=== PATIENT | male | born 1955 | race African-American/Black ===

== ENCOUNTER 2019-04-24 17:57 | Inpatient (IN) | payer OTHER ==
--- NOTE | 2019-04-24 18:19 | PDOC ---
History of Present Illness - General Chief Complaint: Pain, Acute Stated Complaint: ABD PAIN Time Seen by Provider: 04/24/19 17:58 History Source: Patient Exam Limitations: No Limitations - History of Present Illness Initial Comments: 04/24/19 18:09 64yo M with no significant PMH presenting to ED with complaints of abdominal pain, constipation and nausea. Pt states the pain started yesterday but has not had a bowel movement for 2d. The pain was 10/10 yesterday but it is 8/10 today, constant, feels sharp, does not radiate. He has not taken medication for the pain or the constipation. He says he is still passing gas. He endorses bloating. Denies vomiting, recent changes in bowel habits, abdominal surgeries, medication use, fevers, chills, urinary symptoms. No family history of colon cancer in the family. PMD: none PMH: none PSH: none Allergies: nkda Social: denies. Past History - Past Medical History Allergies/Adverse Reactions: Allergies Allergy/AdvReac Type Severity Reaction Status Date / Time No Known Allergies Allergy Verified 04/24/19 17:58 COPD: No - Suicide/Smoking/Psychosocial Hx Smoking History: Never smoked Hx Alcohol Use: No Drug/Substance Use Hx: No Review of Systems - Review of Systems Constitutional: No: Chills, Fever, Weakness HEENTM: No: Symptoms Reported Respiratory: No: Shortness of Breath Cardiac (ROS): No: Chest Pain, Lightheadedness, Palpitations, Syncope ABD/GI: Yes: See HPI, Constipated, Nausea, Abdominal cramping. No: Diarrhea, Poor Fluid Intake, Rectal Bleeding, Vomiting, Tarry Stools : No: Symptoms Reported Musculoskeletal: No: Symptoms Reported Integumentary: No: Symptoms Reported Neurological: No: Symptoms reported *Physical Exam - Vital Signs Last Vital Signs Temp Pulse Resp BP Pulse Ox 0/0 L 04/24/19 17:57 - Physical Exam General Appearance: Yes: Appropriately Dressed, Obese. No: Apparent Distress HEENT: positive: EOMI, MACHELLE Neck: positive: Trachea midline, Supple Respiratory/Chest: positive: Lungs Clear, Normal Breath Sounds Cardiovascular: positive: Regular Rhythm, Regular Rate, S1, S2. negative: Edema , JVD, Murmur Vascular Pulses: Dorsalis-Pedis (R): 2+, Doralis-Pedis (L): 2+ Gastrointestinal/Abdominal: positive: Normal Bowel Sounds, Distended, Tenderness (diffuse), Hernia (non tender reducible umbilical hernia without skin changes). negative: Pulsatile Mass, Increased Bowel Sounds, Guarding, Rebound, Mass Rectal Exam: positive: normal exam, normal rectal tone, other (no stool in vault ). negative: melena, hemorrhoids Musculoskeletal: negative: CVA Tenderness Extremity: positive: Normal Capillary Refill. negative: Pedal Edema, Swelling Integumentary: positive: Normal Color, Dry, Warm Neurologic: positive: dispatcher electric power II-XII NML intact, Fully Oriented, Alert, Normal Mood/ Affect, Normal Response, Motor Strength 01/20 ED Treatment Course - LABORATORY CBC & Chemistry Diagram: 04/24/19 18:41 04/24/19 18:41 Medical Decision Making - Medical Decision Making 04/24/19 18:22 64yo M with no significant PMH presenting to ED with complaints of abdominal pain, constipation and nausea. Pt states the pain started yesterday but has not had a bowel movement for 2d. The pain was 10/10 yesterday but it is 8/10 today, constant, feels sharp, does not radiate. He has not taken medication for the pain or the constipation. He says he is still passing gas. He endorses bloating. Denies vomiting, recent changes in bowel habits, abdominal surgeries, medication use, fevers, chills, urinary symptoms. No family history of colon cancer in the family. Vitals: wnl PE: distended abdomen without fluid wave, diffuse abdominal tenderness. No rebound or guarding. reducible umbilical hernia. Normal rectal exam, no fecal impaction palpated. Normal bowel sounds. Pt could be constipated, will likely need CT scan to check for obstruction (mass /malignancy), electrolyte abnormality, ileus. Low suspicion for SBO or volvulus. Will obtain basic labs as well as UA, give IV fluids, zofran and Tylenol for pain. Signed out to night team for further management and dispo *DC/Admit/Observation/Transfer Diagnosis at time of Disposition: Abdominal pain Qualifiers: Abdominal location: generalized Qualified Code(s): R10.84 - Generalized abdominal pain Constipation Qualifiers: Constipation type: unspecified constipation type Qualified Code(s): K59.00 - Constipation, unspecified - Discharge Dispostion Condition at time of disposition: Stable - Referrals - Patient Instructions - Post Discharge Activity
[2019-04-24] MEDS ORDERED: SODIUM CHLORIDE 1,000 ML IV STA (18:20)
[2019-04-24] MEDS ORDERED: ACETAMINOPHEN 1000 MG/100 ML VIAL (NON FORMULARY) IVPB ONE (18:20)
[2019-04-24] MEDS ORDERED: ONDANSETRON 4 MG/2 ML VIAL IVPB ONE (18:20)
--- NOTE | 2019-04-24 18:32 | PDOC ---
Documentation entered by Yessica Man SCRIBE, acting as scribe for William Mejia MD. William Mejia MD: This documentation has been prepared by the maileibeDonovan Lincy, SCRIBE, under my direction and personally reviewed by me in its entirety. I confirm that the documentation accurately reflects all work, treatment, procedures, and medical decision making performed by me. Attending Attestation - Resident Resident Name: Karen Hong - ED Attending Attestation I have performed the following: I have examined & evaluated the patient, The case was reviewed & discussed with the resident, I agree w/resident's findings & plan, Exceptions are as noted - HPI HPI: 04/24/19 18:26 The patient is a 64-year-old male with no significant past medical history presents to the emergency department with abdominal pain, constipation, bloating , and nausea. The patient presents with 2 days of constipation, associated with a 1-day history of sharp, nonradiating, 10/10 abdominal pain, and bloating. The patient reports the pain has decreased in severity to 8/10 today, associated with nausea, denies vomiting, hematochezia, or melena. The patient states he was able to tolerate PO today and pass gas. Denies recent travel. Denies urinary complaints. Allergies: NKDA Surgical history: Denies prior abdominal surgery. 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 - Physicial Exam PE: 04/24/19 18:30 Alert, cheerful and cooperative, no acute distress Afebrile, vital signs normal Abdomen mildly distended. Bowel sounds infrequent but normal in character. Mild diffuse tenderness to deep palpation in all 4 quadrants, without real localization. No guarding or rebound. Rectal exam, done by the resident, reportedly negative. There was no impaction. There were no masses or tenderness. There was no stool to be obtained in the ampulla. - Medical Decision Making 04/24/19 18:16 Assessment: Patient with new onset abdominal pain and constipation, distended abdomen but no significant tenderness, nausea but no vomiting, passing gas, tolerating small amounts of food and fluid, rule out partial small bowel obstruction Plan: Basic labs, IV fluids, and CT. Further medical evaluation treatment depending on the initial results 05/01/19 08:44 Patient was signed out to Dr. Morrow pending further evaluation, results of labs and CT scan. Patient is relatively comfortable, in no distress, clinically and hemodynamically stable.
[2019-04-24] MEDS ORDERED: ACETAMINOPHEN INJECTION 100 ML IVPB ONE (18:41)
[2019-04-24] MEDS ORDERED: ONDANSETRON 4 MG/2 ML VIAL ONE (18:41)
[2019-04-24 18:53] LABS: BASO % 0.8 % (0-2.0); HEMATOCRIT 44.5 % (35.4-49); HEMOGLOBIN 14.4 GM/dl (11.7-16.9); LYMPH % 35.1 % (8-40); MCH 27.9 pg (25.7-33.7); MCHC 32.4 g/dl (32.0-35.9); MEAN PLT VOLUME 8.6 fl (7.5-11.1); MONO % 11.6 % (3.8-10.2); NEUT % 50.5 % (42.8-82.8); PLATELET COUNT 246 K/MM3 (134-434); RBC 5.17 M/mm3 (4.00-5.60); RDW 13.9 % (11.9-15.9); WHITE BLOOD COUNT 4.5 K/mm3 (4.0-10.8)
[2019-04-24 19:03] LABS: ALBUMIN 4.2 g/dl (3.4-5.0); BILIRUBIN,TOTAL 3.7 mg/dl (0.2-1); CALCIUM 9.1 mg/dl (8.5-10); CREATININE 0.9 mg/dl (0.55-1.3); POTASSIUM 3.5 mmol/L (3.5-5.1); TOT PROT 8.6 g/dl (6.4-8.2)
[2019-04-24 20:45] LABS: PH,URINE 5.5 (4.5-8); URINE APPEARANCE SL CLOUDY; URINE BILIRUBIN 3+ (NEGATIVE); URINE COLOR DK YELLOW; URINE GLUCOSE (UA) NEGATIVE (NEGATIVE); URINE KETONE NEGATIVE (NEGATIVE); URINE LEUK ESTERASE NEGATIVE (NEGATIVE); URINE NITRITE NEGATIVE (NEGATIVE); URINE PROTEIN TRACE (NEGATIVE)
[2019-04-24 21:02] LABS: URINE WBC 0-2 (NEGATIVE)
[2019-04-25] MEDS ORDERED: PIPERACILLIN/TAZOB 3.375 GM 3.375 GM in DEXTROSE 5%-WATER - 50 ML IVPB ONE (00:31)
[2019-04-25] MEDS ORDERED: SODIUM CHLORIDE 1,000 ML IV STA (00:31)
[2019-04-25] MEDS ORDERED: PIPERACILLIN/TAZOBACTAM 3.375 GM VIAL IVPB ONE ×2 (00:34→10:22)
--- NOTE | 2019-04-25 00:56 | PDOC ---
History of Present Illness - General Chief Complaint: Pain, Acute Stated Complaint: ABD PAIN Time Seen by Provider: 04/24/19 17:58 Past History - Past Medical History Allergies/Adverse Reactions: Allergies Allergy/AdvReac Type Severity Reaction Status Date / Time No Known Allergies Allergy Verified 04/24/19 17:58 COPD: No - Suicide/Smoking/Psychosocial Hx Smoking History: Never smoked Hx Alcohol Use: No Drug/Substance Use Hx: No *Physical Exam - Vital Signs Last Vital Signs Temp Pulse Resp BP Pulse Ox 98.7 F 88 18 154/95 96 04/24/19 17:57 04/24/19 17:57 04/24/19 17:57 04/24/19 17:57 04/24/19 17:57 ED Treatment Course - LABORATORY CBC & Chemistry Diagram: 04/24/19 18:41 04/24/19 18:41 - ADDITIONAL ORDERS Additional order review: Laboratory Results 04/24/19 04/24/19 04/24/19 20:25 18:41 18:41 Sodium 139 Potassium 3.5 Chloride 102 Carbon Dioxide 30 Anion Gap 7 L BUN 7.0 Creatinine 0.9 Est GFR (CKD-EPI)AfAm 102.79 Est GFR (CKD-EPI)NonAf 88.69 Random Glucose 126 H Calcium 9.1 Total Bilirubin 3.7 H AST 505 H ALT 600 H Alkaline Phosphatase 157 H Total Protein 8.6 H Albumin 4.2 Lipase 258 Urine Color Dk yellow Urine Appearance Sl cloudy Urine pH 5.5 Ur Specific [place] 1.015 Urine Protein Trace Urine Glucose (UA) Negative Urine Ketones Negative Urine Blood Trace-intact Urine Nitrite Negative Urine Bilirubin 3+ Urine Urobilinogen 1.0 Ur Leukocyte Esterase Negative Urine WBC (Auto) 0-2 Urine RBC (Auto) 2-5 04/24/19 18:41 RBC 5.17 MCV 86.0 MCHC 32.4 RDW 13.9 MPV 8.6 Neutrophils % 50.5 Lymphocytes % 35.1 Monocytes % 11.6 H Eosinophils % 2.0 Basophils % 0.8 - RADIOLOGY Radiology Studies Ordered: Category Date Time Status ABDOMEN US -LIMITED [US] Stat Ultrasound 04/24/19 21:15 Completed - Medications Given in the ED: ED Medications Discontinued Medications Generic Name Dose Route Start Last Admin Trade Name Freq PRN Reason Stop Dose Admin Acetaminophen 1,000 mg 04/24/19 18:20 04/24/19 18:47 Ofirmev Injection - IVPB 04/24/19 18:21 1,000 mg ONCE ONE Administration Sodium Chloride 1,000 mls @ 1,000 mls/hr 04/24/19 18:20 04/24/19 18:46 Normal Saline - IV 04/24/19 19:19 1,000 mls/hr ASDIR STA Administration Ondansetron HCl 4 mg 04/24/19 18:20 04/24/19 18:46 Zofran Injection IVPB 04/24/19 18:21 4 mg ONCE ONE Administration Progress Note - Progress Note Progress Note: Care of this patient received from Dr. Baer. Laboratory evaluation notable for bilirubin of 3.7 with alkaline phosphatase and transaminases elevated. Abdominal /pelvic CT performed: There was no evidence of small bowel obstruction or other acute intra-abdominal process. Of note, gallbladder and liver appeared normal. Because of abnormalities in the patient's LFTs/transaminases, ultrasound the abdomen was performed: Partially distended gallbladder with multiple intra- renal stones found. Gallbladder wall was thickened and a positive Ingram's sign noted by mold preparer. There was no pericholecystic fluid. No CBD dilatation or stones seen. Liver was of normal size with slightly dense and coarse echotexture. (Interpreted as fatty liver versus hepatocellular disease) Results discussed with the patient. He has no known history of gallbladder disease. Since he continues to have mild nausea and significant abdominal discomfort, admission for treatment and further evaluation of apparent acute cholecystitis is warranted. Results discussed with surgical consult: Dr. Fulton. He will see patient in the morning Patient treated with Zosyn 3.375 grams IV Twelve-lead electrocardiogram performed normal sinus rhythm at 64 bpm. [place], intervals and waveforms are all normal. No evidence of acute ST or T-wave abnormalities. Other than occasional PVCs, in no acute cardiac arrhythmia noted. [facility] Patient will be admitted to 's service; med/surg bed here at [facility] *DC/Admit/Observation/Transfer Diagnosis at time of Disposition: Abdominal pain Qualifiers: Abdominal location: generalized Qualified Code(s): R10.84 - Generalized abdominal pain Constipation Qualifiers: Constipation type: unspecified constipation type Qualified Code(s): K59.00 - Constipation, unspecified - Discharge Dispostion Condition at time of disposition: Stable - Referrals - Patient Instructions - Post Discharge Activity
[2019-04-25] MEDS ORDERED: DEXTROSE 5%-0.45% SALINE 1,000 ML IV SCH (02:00)
[2019-04-25 07:41] LABS: BASO % 0.4 % (0-2.0); EOS % 2.5 % (0-4.5); HEMATOCRIT 39.1 % (35.4-49); HEMOGLOBIN 12.8 GM/dl (11.7-16.9); LYMPH % 38.9 % (8-40); MCH 28.3 pg (25.7-33.7); MCHC 32.8 g/dl (32.0-35.9); MEAN CELL VOLUME 86.2 fl (80-96); MEAN PLT VOLUME 9.1 fl (7.5-11.1); MONO % 12.1 % (3.8-10.2); NEUT % 46.1 % (42.8-82.8); PLATELET COUNT 208 K/MM3 (134-434); RBC 4.53 M/mm3 (4.00-5.60); RDW 13.9 % (11.9-15.9); WHITE BLOOD COUNT 4.7 K/mm3 (4.0-10.8)
[2019-04-25 07:58] LABS: ALBUMIN 3.5 g/dl (3.4-5.0); BILIRUBIN,TOTAL 2.3 mg/dl (0.2-1); CALCIUM 8.6 mg/dl (8.5-10); CREATININE 0.9 mg/dl (0.55-1.3); TOT PROT 7.3 g/dl (6.4-8.2)
--- NOTE | 2019-04-25 09:32 | HP ---
CHIEF COMPLAINT: Abdominal pain PCP: None HISTORY OF PRESENT ILLNESS: 64 year-old male who reports no significant PMH, has not seen a health care provider in more than 5 years. Patient presented to the ED for evaluation of constipation and abdominal pain x 2 days. Patient reported being constipated for several days and two days ago developed mid-abdominal pain and nausea. He described the pain as waxing and waning but never completely going away. The pain became intolerable so he came to the ED. This morning after coming to the floor patient had a large, brown, formed stool bowel movement and the pain went from 10/10 to 3/10. Patient denies vomiting, fever, sweats, chills. ER course was notable for: (1) Total bili 3.7 (2) AST/ALT/Alk phos 505/600/157 (3) US abdomen: acute cholecystitis Recent Travel: No PAST MEDICAL HISTORY: None reported PAST SURGICAL HISTORY: None reported Social History: lives with , works as car service/transportation driver Smoking: denies Alcohol: no Drugs: no Family History: mother 82 diabetes; father 53 unknown; sister with diabetes; four children a&w Allergies No Known Allergies Allergy (Verified 04/24/19 17:58) HOME MEDICATIONS: None REVIEW OF SYSTEMS CONSTITUTIONAL: Absent: fever, chills, diaphoresis, generalized weakness, malaise, loss of appetite, weight change HEENT: Absent: rhinorrhea, nasal congestion, throat pain, throat swelling, difficulty swallowing, mouth swelling, ear pain, eye pain, visual changes CARDIOVASCULAR: Absent: chest pain, syncope, palpitations, irregular heart rate, lightheadedness , peripheral edema RESPIRATORY: Absent: cough, shortness of breath, dyspnea with exertion, orthopnea, wheezing, stridor, hemoptysis GASTROINTESTINAL: +constipation, abdominal pain Absent: abdominal distension, nausea, vomiting, diarrhea, melena, hematochezia GENITOURINARY: Absent: dysuria, frequency, urgency, hesitancy, hematuria, flank pain, genital pain MUSCULOSKELETAL: Absent: myalgia, arthralgia, joint swelling, back pain, neck pain SKIN: Absent: rash, itching, pallor HEMATOLOGIC/IMMUNOLOGIC: Absent: easy bleeding, easy bruising, lymphadenopathy, frequent infections ENDOCRINE: Absent: unexplained weight gain, unexplained weight loss, heat intolerance, cold intolerance NEUROLOGIC: Absent: headache, focal weakness or paresthesias, dizziness, unsteady gait, seizure, mental status changes, bladder or bowel incontinence PSYCHIATRIC: Absent: anxiety, depression, suicidal or homicidal ideation, hallucinations. PHYSICAL EXAMINATION Vital Signs - 24 hr 04/24/19 04/25/19 04/25/19 17:57 01:06 03:01 Temperature 98.7 F 98.5 F 98.4 F Pulse Rate 88 81 Pulse Rate [ 66 Apical] Respiratory 18 16 18 Rate Blood Pressure 154/95 155/87 Blood Pressure 145/87 [Arm] O2 Sat by Pulse 96 98 96 Oximetry (%) 04/25/19 03:11 Temperature 98.4 F Pulse Rate 81 Pulse Rate [ Apical] Respiratory 19 Rate Blood Pressure 155/87 Blood Pressure [Arm] O2 Sat by Pulse 95 Oximetry (%) GENERAL: Awake, alert, and fully oriented, in no acute distress. HEAD: Normal with no signs of trauma. EYES: Pupils equal, round and reactive to light, extraocular movements intact, sclera anicteric, conjunctiva clear. No lid lag. LUNGS: Breath sounds equal, clear to auscultation bilaterally. No wheezes, and no crackles. No accessory muscle use. HEART: Regular rate and rhythm, S1 and S2 ABDOMEN: Soft, nontender, not distended, normoactive bowel sounds, no guarding, no rebound tenderness; umbilical hernia easily reducible MUSCULOSKELETAL: Normal range of motion at all joints. No bony deformities or tenderness. No CVA tenderness. UPPER EXTREMITIES: 2+ pulses, warm, well-perfused. No cyanosis. No clubbing. No peripheral edema. LOWER EXTREMITIES: 2+ pulses, warm, well-perfused. No calf tenderness. No peripheral edema. NEUROLOGICAL: Cranial nerves II-XII intact. Normal speech. Normal gait. Laboratory Results - last 24 hr 04/24/19 04/24/19 04/24/19 18:41 18:41 18:41 WBC 4.5 RBC 5.17 Hgb 14.4 Hct 44.5 MCV 86.0 MCH 27.9 MCHC 32.4 RDW 13.9 Plt Count 246 MPV 8.6 Absolute Neuts (auto) 2.3 Neutrophils % 50.5 Lymphocytes % 35.1 Monocytes % 11.6 H Eosinophils % 2.0 Basophils % 0.8 Sodium 139 Potassium 3.5 Chloride 102 Carbon Dioxide 30 Anion Gap 7 L BUN 7.0 Creatinine 0.9 Est GFR (CKD-EPI)AfAm 102.79 Est GFR (CKD-EPI)NonAf 88.69 Random Glucose 126 H Calcium 9.1 Total Bilirubin 3.7 H AST 505 H ALT 600 H Alkaline Phosphatase 157 H Total Protein 8.6 H Albumin 4.2 Lipase 258 Urine Color Urine Appearance Urine pH Ur Specific [place] Urine Protein Urine Glucose (UA) Urine Ketones Urine Blood Urine Nitrite Urine Bilirubin Urine Urobilinogen Ur Leukocyte Esterase Urine WBC (Auto) Urine RBC (Auto) 04/24/19 04/25/19 04/25/19 20:25 07:15 07:15 WBC 4.7 RBC 4.53 Hgb 12.8 Hct 39.1 MCV 86.2 MCH 28.3 MCHC 32.8 RDW 13.9 Plt Count 208 MPV 9.1 Absolute Neuts (auto) 2.2 Neutrophils % 46.1 Lymphocytes % 38.9 Monocytes % 12.1 H Eosinophils % 2.5 Basophils % 0.4 Sodium 139 Potassium 4.0 Chloride 106 Carbon Dioxide 27 Anion Gap 6 L BUN 5.0 L Creatinine 0.9 Est GFR (CKD-EPI)AfAm 102.79 Est GFR (CKD-EPI)NonAf 88.69 Random Glucose 140 H Calcium 8.6 Total Bilirubin 2.3 H AST 324 H ALT 500 H Alkaline Phosphatase 138 H D Total Protein 7.3 Albumin 3.5 Lipase Urine Color Dk yellow Urine Appearance Sl cloudy Urine pH 5.5 Ur Specific [place] 1.015 Urine Protein Trace Urine Glucose (UA) Negative Urine Ketones Negative Urine Blood Trace-intact Urine Nitrite Negative Urine Bilirubin 3+ Urine Urobilinogen 1.0 Ur Leukocyte Esterase Negative Urine WBC (Auto) 0-2 Urine RBC (Auto) 2-5 ASSESSMENT/PLAN 64 year-old male with no reported PMH. Admitted for acute cholecystitis. Acute cholecystitis --seen on US --Zosyn (day #1) --surgery following Elevated bili Transaminitis --trending down --MRCP done, pending dictation --hepatitis panel pending --lipase wnl FEN Fluids: D51/2@100mL/hr Electrolytes: replete as indicated Nutrition: NPO DVT prophylaxis: SCDs, oob, ambulation; avoid chemical prophylaxis due to possible surgery Dispo: continues to require inpatient care. Full code. Visit type - Emergency Visit Emergency Visit: Yes ED Registration Date: 04/25/19 Care time: The patient presented to the Emergency Department on the above date and was hospitalized for further evaluation of their emergent condition. - New Patient This patient is new to me today: Yes Date on this admission: 04/25/19 - Critical Care Critical Care patient: No
[2019-04-25] MEDS ORDERED: PIPERACILLIN/TAZOB 3.375 GM 3.375 GM in DEXTROSE 5%-WATER - 50 ML IVPB SCH (10:00)
[2019-04-25] MEDS ORDERED: DEXTROSE 5%-WATER - 50 ML IVPB ONE ×2 (10:22→17:33)
--- NOTE | 2019-04-25 11:14 | CONSULT ---
Consult Consult Specialty:: General Surgery Reason for Consultation:: choledocholithiais - History of Present Illness Chief Complaint: abdominal pain History of Present Illness: 64 yo male uncertain PMH obesity, has not seen a health care provider in more than 5 years. Patient presented to the ED for evaluation of constipation and abdominal pain x 2 days. Patient reported being constipated for several days and two days ago developed mid-abdominal pain and nausea. He described the pain as waxing and waning but never completely going away. The pain became intolerable so he came to the ED. This morning after coming to the floor patient had a large, brown, formed stool bowel movement and the pain went from 10/10 to 3/10. Patient denies vomiting, fever, sweats, chills. we were asked to assess. - History Source History Provided By: Patient, Medical Record Limitations to Obtaining History: No Limitations - Past Medical History Additional Medical History: obesity - Alcohol/Substance Use Hx Alcohol Use: No - Smoking History Smoking history: Never smoked Home Medications - Allergies Allergies/Adverse Reactions: Allergies Allergy/AdvReac Type Severity Reaction Status Date / Time No Known Allergies Allergy Verified 04/24/19 17:58 - Home Medications Home Medications: Ambulatory Orders NK [No Known Home Medication] 04/26/19 Review of Systems - Review of Systems Constitutional: denies: Chills, Fever Eyes: denies: Blind Spots, Blurred Vision, Double Vision HENT: denies: Difficult Swallowing, Throat Pain Cardiovascular: denies: Chest Pain, Edema Respiratory: denies: Cough, SOB Gastrointestinal: reports: Abdominal Pain, Indigestion. denies: Constipation, Diarrhea Genitourinary: denies: Discharge, Dysuria, Flank Pain Breasts: reports: No Symptoms Reported. denies: Pain Musculoskeletal: denies: Muscle Pain, Muscle Cramps Integumentary: denies: Blister, Lump, Rash Neurological: denies: Seizure, Syncope Endocrine: denies: Unexplained Weight Gain, Unexplained Weight Loss Hematology/Lymphatic: denies: Easily Bruised, Excessive Bleeding Psychiatric: denies: Anxiety, Depression Physical Exam Vital Signs: Vital Signs Temperature 98.6 F 04/25/19 09:00 Pulse Rate 72 04/25/19 09:00 Respiratory Rate 18 04/25/19 09:00 Blood Pressure 128/63 04/25/19 09:00 O2 Sat by Pulse Oximetry (%) 95 04/25/19 03:11 Constitutional: Yes: Well Nourished, No Distress, Calm Eyes: Yes: Conjunctiva Clear, EOM Intact HENT: Yes: Atraumatic, Normocephalic Neck: Yes: Supple, Trachea Midline Cardiovascular: Yes: Regular Rate and Rhythm, S1, S2 Respiratory: Yes: Regular, CTA Bilaterally Gastrointestinal: Yes: Normal Bowel Sounds, Soft, Abdomen, Obese, Tenderness, Tenderness, Rebound ...Rectal Exam: Yes: Deferred Renal/: No: CVA Tenderness - Left, CVA Tenderness - Right Breast(s): No: Mass, Skin Changes Musculoskeletal: No: Muscle Pain, Muscle Weakness Extremities: No: Cool, Cyanosis Edema: No Peripheral Pulses WNL: Yes Integumentary: Yes: Jaundice. No: Incision, Rash Neurological: Yes: Alert, Oriented Psychiatric: Yes: Alert, Oriented Labs: CBC, BMP 04/25/19 07:15 04/25/19 07:15 Imaging - Results Cat Scan: Report Reviewed, Image Reviewed Ultrasound: Report Reviewed, Image Reviewed MRI: Report Reviewed, Image Reviewed Problem List - Problems (1) Choledocholithiasis with obstruction Assessment/Plan: 64yo male with choledocholithiasis with CBD obstrutcions NPO and IVF hydration IV antibiotics Adequate analgesia trend labs Agree with GI cnosult will plan for surgery after ERCP Possible 04/29/2019 Laurence Catherine Thank you for the opportunity to participate in the care of this patient. Code(s): K80.51 - CALCULUS OF BILE DUCT W/O CHOLANGITIS OR CHOLECYST W OBST Qualifiers: Cholecystitis presence: with cholecystitis Cholecystitis acuity: acute and chronic Qualified Code(s): K80.47 - Calculus of bile duct with acute and chronic cholecystitis with obstruction (2) Obesity (BMI 30-39.9) Code(s): E66.9 - OBESITY, UNSPECIFIED (3) RUQ abdominal pain Code(s): R10.11 - RIGHT UPPER QUADRANT PAIN (4) Jaundice Code(s): R17 - UNSPECIFIED JAUNDICE (5) Abdominal pain in male Code(s): R10.9 - UNSPECIFIED ABDOMINAL PAIN (6) Constipation Code(s): K59.00 - CONSTIPATION, UNSPECIFIED Qualifiers: Constipation type: unspecified constipation type Qualified Code(s): K59.00 - Constipation, unspecified
--- NOTE | 2019-04-25 11:33 | CON.ID ---
Consult - Alcohol/Substance Use Hx Alcohol Use: No - Smoking History Smoking history: Never smoked Home Medications - Allergies Allergies/Adverse Reactions: Allergies Allergy/AdvReac Type Severity Reaction Status Date / Time No Known Allergies Allergy Verified 04/24/19 17:58 Physical Exam Vital Signs: Vital Signs Temperature 98.6 F 04/25/19 09:00 Pulse Rate 72 04/25/19 09:00 Respiratory Rate 18 04/25/19 09:00 Blood Pressure 128/63 04/25/19 09:00 O2 Sat by Pulse Oximetry (%) 95 04/25/19 03:11 Labs: CBC, BMP 04/25/19 07:15 04/25/19 07:15
--- NOTE | 2019-04-25 13:58 | EKG ---
Test Reason : Blood Pressure : / mmHG Vent. Rate : 064 BPM Atrial Rate : 064 BPM P-R Int : 172 ms QRS Dur : 094 ms QT Int : 402 ms P-R-T Axes : 044 -10 004 degrees QTc Int : 414 ms SINUS RHYTHM WITH OCCASIONAL PREMATURE VENTRICULAR COMPLEXES OTHERWISE NORMAL ECG NO PREVIOUS ECGS AVAILABLE Confirmed by ROD COLES, NYDIA ([id number]) on 04/25/2019 1:58:14 PM Referred By: MD CURRY Confirmed By:NYDIA VELASCO MD
[2019-04-25] MEDS ORDERED: PIPERACILLIN/TAZOBACTAM 2.25 GM VIAL IVPB ONE (17:33)
[2019-04-26] MEDS ORDERED: DEXTROSE 5%-WATER - 50 ML IVPB ONE ×3 (00:34→17:07)
[2019-04-26] MEDS ORDERED: PIPERACILLIN/TAZOBACTAM 2.25 GM VIAL IVPB ONE ×3 (00:34→17:07)
[2019-04-26] MEDS: PIPERACILLIN/TAZOB 2.25 GM 2.25 GM in DEXTROSE 5%-WATER - 50 ML IVPB SCH ×3 (01:04→17:33)
[2019-04-26] MEDS ORDERED: PIPERACILLIN/TAZOB 3.375 GM 3.375 GM in DEXTROSE 5%-WATER - 50 ML IVPB SCH (02:00)
[2019-04-26 08:19] LABS: BASO % 0.4 % (0-2.0); EOS % 1.9 % (0-4.5); HEMATOCRIT 37.7 % (35.4-49); HEMOGLOBIN 12.6 GM/dl (11.7-16.9); LYMPH % 29.1 % (8-40); MCH 28.7 pg (25.7-33.7); MCHC 33.4 g/dl (32.0-35.9); MEAN CELL VOLUME 86.1 fl (80-96); MEAN PLT VOLUME 9.2 fl (7.5-11.1); MONO % 10.7 % (3.8-10.2); NEUT % 57.9 % (42.8-82.8); PLATELET COUNT 197 K/MM3 (134-434); RBC 4.38 M/mm3 (4.00-5.60); RDW 13.4 % (11.9-15.9); WHITE BLOOD COUNT 6.8 K/mm3 (4.0-10.8)
[2019-04-26 08:45] LABS: ALBUMIN 3.3 g/dl (3.4-5.0); BILIRUBIN,DIRECT 0.4 mg/dL (0.0-0.2); BILIRUBIN,TOTAL 1.1 mg/dl (0.2-1); CALCIUM 8.3 mg/dl (8.5-10); CREATININE 0.9 mg/dl (0.55-1.3); MAGNESIUM 1.6 mg/dL (1.8-2.4); POTASSIUM 3.5 mmol/L (3.5-5.1); TOT PROT 6.8 g/dl (6.4-8.2)
[2019-04-26] MEDS ORDERED: MAGNESIUM SULF 50% (8.12 MEQ/2 ML-1 GM VIAL) IVPB ONE (09:44)
[2019-04-26] MEDS ORDERED: MAGNESIUM SULFATE IN WATER 2 GM/50 ML IVPB IVPB ONE (10:00)
--- NOTE | 2019-04-26 12:09 | PN ---
Progress Note, Physician History of Present Illness: patient stable no new issues - Current Medication List Current Medications: Active Medications Piperacillin Sod/Tazobactam (Sod 2.25 gm/ Dextrose) 50 mls @ 100 mls/hr IVPB Q8H-IV KENDAL; Protocol Last Admin: 04/26/19 09:33 Dose: 100 mls/hr - Objective Vital Signs: Vital Signs Temperature 99.0 F 04/26/19 09:00 Pulse Rate 78 04/26/19 09:00 Respiratory Rate 04/26/19 09:00 Blood Pressure 140/79 04/26/19 09:00 O2 Sat by Pulse Oximetry (%) 95 04/26/19 09:00 Constitutional: Yes: No Distress, Calm, Obese Cardiovascular: Yes: Regular Rate and Rhythm Respiratory: Yes: Regular, CTA Bilaterally Gastrointestinal: Yes: Normal Bowel Sounds, Soft Musculoskeletal: Yes: WNL Extremities: Yes: WNL Neurological: Yes: Alert, Oriented Psychiatric: Yes: Alert, Oriented Labs: CBC, BMP 04/26/19 07:06 04/26/19 07:06 - ....Imaging MRI: Report Reviewed, Image Reviewed Assessment/Plan 64 year-old male with no reported PMH. Admitted for acute cholecystitis. Acute cholecystitis Elevated bili Transaminitis cbd stone plan continue current mgmt félix d/w the team monitor lft and bili
--- NOTE | 2019-04-26 13:38 | PN ---
Physical Exam: SUBJECTIVE: Patient seen and examined oob to chair. OBJECTIVE: Vital Signs Period Temp Pulse Resp BP Sys/Gandara Pulse Ox Last 24 Hr 98.0 F-99.0 F 75-81 18-20 114-141/54-85 95-98 GENERAL: Awake, alert, and fully oriented, in no acute distress. HEAD: Normal with no signs of trauma. EYES: Pupils equal, round and reactive to light, extraocular movements intact, sclera anicteric, conjunctiva clear. No lid lag. LUNGS: Breath sounds equal, clear to auscultation bilaterally. No wheezes, and no crackles. No accessory muscle use. HEART: Regular rate and rhythm, S1 and S2 ABDOMEN: Soft, nontender, not distended, normoactive bowel sounds, no guarding, no rebound tenderness; umbilical hernia easily reducible MUSCULOSKELETAL: Normal range of motion at all joints. No bony deformities or tenderness. No CVA tenderness. UPPER EXTREMITIES: 2+ pulses, warm, well-perfused. No cyanosis. No clubbing. No peripheral edema. LOWER EXTREMITIES: 2+ pulses, warm, well-perfused. No calf tenderness. No peripheral edema. NEUROLOGICAL: Cranial nerves II-XII intact. Normal speech. Normal gait. Laboratory Results - last 24 hr 04/24/19 04/26/19 04/26/19 20:10 07:06 07:06 WBC 6.8 RBC 4.38 Hgb 12.6 Hct 37.7 MCV 86.1 MCH 28.7 MCHC 33.4 RDW 13.4 Plt Count 197 MPV 9.2 Absolute Neuts (auto) 4.0 Neutrophils % 57.9 D Lymphocytes % 29.1 D Monocytes % 10.7 H Eosinophils % 1.9 Basophils % 0.4 Sodium 134 L Potassium 3.5 Chloride 101 Carbon Dioxide 28 Anion Gap 5 L BUN 6.0 L Creatinine 0.9 Est GFR (CKD-EPI)AfAm 102.79 Est GFR (CKD-EPI)NonAf 88.69 Random Glucose 120 H Calcium 8.3 L Magnesium 1.6 L Total Bilirubin 1.1 H Direct Bilirubin 0.4 H AST 126 H ALT 303 H Alkaline Phosphatase 121 H D Total Protein 6.8 Albumin 3.3 L Hep A IgM Ab Confirm Negative Hep Bs Antigen Negative Hep B Core IgM Ab Negative Hepatitis C Ab (EIA) 0.2 Active Medications Generic Name Dose Route Start Last Admin Trade Name Freq PRN Reason Stop Dose Admin Piperacillin Sod/Tazobactam 50 mls @ 100 mls/hr 04/25/19 18:00 04/26/19 09:33 Sod 2.25 gm/ Dextrose IVPB 100 mls/hr Q8H-IV KENDAL Administration Protocol ASSESSMENT/PLAN: 64 year-old male with no reported PMH. Admitted for abdominal pain suspicious for acute cholecystitis. Abdominal pain Cholelithiasis --04/24 CTAP: gallbladder unremarkable --04/24 US: partially distended gallbladder with multiple intraluminal stoes, thickened wall, catalyst supervisor +Ingram's sign, suggestive of acute cholecystitis --04/25 MRCP: cholelithiasis with no MRI evidence of cholecystitis; questionable small nonobstructing mid to distal CBD stones with no biliary ductal dilitation --total bili trending down 3.7-->2.3-->1.1 --transaminases trending down --lipase wnl --transfer to [facility] for GI consult --surgery Dr. Oakley consulted FEN Fluids: PO intake adequate Electrolytes: replete as indicated Nutrition: tolerating full liquids DVT prophylaxis: SCDs, oob, ambulation; avoid chemical prophylaxis due to possible surgery Dispo: Today patient requested Dr. Trevino see him in the hospital. Communicated with Dr. Espinoza covering for Dr. Trevino today and he accepted care of the patient. The hospitalist service will sign off at this time. Patient transferring to [facility] for GI consult. Visit type - Emergency Visit Emergency Visit: Yes ED Registration Date: 04/25/19 Care time: The patient presented to the Emergency Department on the above date and was hospitalized for further evaluation of their emergent condition. - New Patient This patient is new to me today: No - Critical Care Critical Care patient: No
[2019-04-26] MEDS ORDERED: PIPERACILLIN/TAZOB 2.25 GM 2.25 GM in DEXTROSE 5%-WATER - 50 ML IVPB SCH (18:00)
--- NOTE | 2019-04-26 19:51 | CON.GI ---
Consult Consult Specialty:: Gastroenterology ( covering the [facility] GI service) Referred by:: Helen Palacio NP Reason for Consultation:: Abd pain - History of Present Illness Chief Complaint: Abdominal pain with constipation x 3 days with nausea History of Present Illness: 64M presented to the [facility] ER for constipation associated with diffuse colicky abdominal pain and nausea. He usually moves his bowels daily. He was found to have a TB of 3.7 and the MRCP reveals CBD stones. His pain is much improved and he has moved his bowels. He has never had an EGD or a colonoscopy. His PMD is Dr. De Leon but he rarely sees him. He denies any medical problems or surgeries - History Source History Provided By: Patient Limitations to Obtaining History: No Limitations - Past Medical History Hepatobiliary: Yes: Cholelithiasis, Choledocholithiasis, Other (fatty liver) - Past Surgical History Past Surgical History: Yes: None - Alcohol/Substance Use Hx Alcohol Use: No History of Substance Use: reports: None - Smoking History Smoking history: Never smoked - Social History Usual Living Arrangement: With Spouse ADL: Independent Occupation: taxi Place of : Other ([facility]) Came to [place] (year): age 38 History of Recent Travel: No Home Medications - Allergies Allergies/Adverse Reactions: Allergies Allergy/AdvReac Type Severity Reaction Status Date / Time No Known Allergies Allergy Verified 04/24/19 17:58 - Home Medications Home Medications: Ambulatory Orders NK [No Known Home Medication] 04/26/19 Family Disease History - Family Disease History Family Disease History: Other: Father ( 64 ? yazdanism), Mother ( 82) Review of Systems - Review of Systems Constitutional: reports: No Symptoms Eyes: reports: No Symptoms HENT: reports: No Symptoms Neck: reports: No Symptoms Cardiovascular: reports: No Symptoms Respiratory: reports: No Symptoms Gastrointestinal: reports: Constipation (new) Genitourinary: reports: No Symptoms Musculoskeletal: reports: No Symptoms Physical Exam-GI Vital Signs: Vital Signs Temperature 98.8 F 04/26/19 13:16 Pulse Rate 81 04/26/19 13:16 Respiratory Rate 18 04/26/19 13:16 Blood Pressure 141/85 04/26/19 13:16 O2 Sat by Pulse Oximetry (%) 98 04/26/19 13:16 CBC,CMP WBC 6.8 K/mm3 (4.0-10.8) 04/26/19 07:06 RBC 4.38 M/mm3 (4.00-5.60) 04/26/19 07:06 Hgb 12.6 GM/dl (11.7-16.9) 04/26/19 07:06 Hct 37.7 % (35.4-49) 04/26/19 07:06 MCV 86.1 fl (80-96) 04/26/19 07:06 MCH 28.7 pg (25.7-33.7) 04/26/19 07:06 MCHC 33.4 g/dl (32.0-35.9) 04/26/19 07:06 RDW 13.4 % (11.9-15.9) 04/26/19 07:06 Plt Count 197 K/MM3 (134-434) 04/26/19 07:06 MPV 9.2 fl (7.5-11.1) 04/26/19 07:06 Absolute Neuts (auto) 4.0 K/mm3 04/26/19 07:06 Neutrophils % 57.9 % (42.8-82.8) D 04/26/19 07:06 Lymphocytes % 29.1 % (8-40) D 04/26/19 07:06 Monocytes % 10.7 % (3.8-10.2) H 04/26/19 07:06 Eosinophils % 1.9 % (0-4.5) 04/26/19 07:06 Basophils % 0.4 % (0-2.0) 04/26/19 07:06 Sodium 134 mmol/L (136-145) L 04/26/19 07:06 Potassium 3.5 mmol/L (3.5-5.1) 04/26/19 07:06 Chloride 101 mmol/L (98-107) 04/26/19 07:06 Carbon Dioxide 28 mmol/L (21-32) 04/26/19 07:06 Anion Gap 5 MMOL/L (8-16) L 04/26/19 07:06 BUN 6.0 mg/dl (7-18) L 04/26/19 07:06 Creatinine 0.9 mg/dl (0.55-1.3) 04/26/19 07:06 Est GFR (CKD-EPI)AfAm 102.79 04/26/19 07:06 Est GFR (CKD-EPI)NonAf 88.69 04/26/19 07:06 Random Glucose 120 mg/dl (74-106) H 04/26/19 07:06 Calcium 8.3 mg/dl (8.5-10) L 04/26/19 07:06 Magnesium 1.6 mg/dL (1.8-2.4) L 04/26/19 07:06 Total Bilirubin 1.1 mg/dl (0.2-1) H 04/26/19 07:06 Direct Bilirubin 0.4 mg/dL (0.0-0.2) H 04/26/19 07:06 AST 126 U/L (15-37) H 04/26/19 07:06 ALT 303 U/L (13-61) H 04/26/19 07:06 Alkaline Phosphatase 121 U/L (45-117) H D 04/26/19 07:06 Total Protein 6.8 g/dl (6.4-8.2) 04/26/19 07:06 Albumin 3.3 g/dl (3.4-5.0) L 04/26/19 07:06 Lipase 258 U/L (73-393) 04/24/19 18:41 Current Medications Generic Name Dose Route Start Last Admin Trade Name Freq PRN Reason Stop Dose Admin Piperacillin Sod/Tazobactam 50 mls @ 100 mls/hr 04/26/19 18:00 04/26/19 17:33 Sod 2.25 gm/ Dextrose IVPB 100 mls/hr Q8H-IV KENDAL Administration Protocol Constitutional: Yes: Calm Eyes: Yes: Conjunctiva Clear HENT: Yes: Atraumatic Neck: Yes: Supple Cardiovascular: Yes: Regular Rate and Rhythm Respiratory: Yes: CTA Bilaterally Gastrointestinal Inspection: Yes: Hernia (large nontender umbilical hernia), Scars (none) ...Auscultate: Yes: Hypoactive Bowel Sounds ...Palpate: Yes: Soft, Tenderness (epigastrium) ...Rectal Exam: Yes: Guaiac Negative (1+ prostate, brown guaiac negative stool normal testicles, no hernias) Edema: No Peripheral Pulses WNL: Yes Neurological: Yes: Alert, Oriented Labs: CBC, BMP 04/26/19 07:06 04/26/19 07:06 Laboratory Tests 04/24/19 04/24/19 04/26/19 18:41 18:41 07:06 Total Bilirubin 3.7 H 1.1 H AST 505 H 126 H ALT 600 H 303 H Alkaline Phosphatase 157 H 121 H D Lipase 258 Imaging - Results MRI: Report Reviewed ( Final Report MR ABDOMEN MRI W/O CONTRAST /MRCP Show Printer-Friendly Version Patient Name: Abi Montiel : 1954 ID: [id number] Study Date: 25-Apr-2019 13:20 [facility] Name: ABI GRAJEDA DEPARTMENT OF RADIOLOGY Phys: Elly Palacioarerogers BROWN : Age: 64 Sex: M [facility] Acct: [id number] Loc: FM/S [address] [place] [address]. Exam Date: 04/25/19 Status: [place] [address] Unit Number: [id number] EXAM#: TYPE/EXAM: RESULT: [id number] MRI/ABDOMEN MRI W/O CONTRAST /MRCP MRI OF THE ABDOMEN WITHOUT IV GADOLINIUM WITH MRCP HISTORY: 64-year-old male with elevated bilirubin and abdominal pain TECHNIQUE: Multiplanar multisequential MRI of the abdomen without the intravenous administration of contrast were performed on a high field 1.5 Cici GE magnet. Axial and coronal T2 fat-sat, axial T1 (in and out of phase), axial T2 FIESTA, axial T1 fat sat - LAVA without contrast in addition to coronal LAVA and axial diffusion weighted images were performed. Axial and coronal thin and thick slab 3 D MRCP was performed. 15 cc of ProHance was administered intravenously No comparison MRI is available. Correlation is made with ultrasound of the abdomen and CT of the abdomen and pelvis dated April 24, 2019. FINDINGS: There is bibasilar atelectatic changes. The visualized inferior mediastinum is grossly unremarkable. The liver is normal in size with no evidence of abnormal loss of signal on out of phase imaging to suggest fatty infiltration. There is no focal hepatic signal abnormality. The spleen is normal in size with no evidence of focal abnormal signal. The pancreas is homogeneous in signal with no focal signal abnormality. The pancreatic duct is nondilated. The gallbladder is distended containing multiple gallstones. There is no abnormal gallbladder wall thickening or surrounding edema. The CBD is normal in caliber measuring 5 to 6 mm. There is a suggestion of small eccentric filling defect in the distal CBD. Another questionable tiny nonobstructing stone is seen. There is no intrahepatic biliary ductal dilatation. The adrenal glands are unremarkable. There is a lobulated right lower renal pole cyst measuring 3.8 x 2.8 cm. There is cortical right upper renal pole high T1 signal. There is a 2.7 x 2.2 cm left upper renal pole lesion demonstrating intermediate T1 and T2 signal with a central low T1 signal with no corresponding restricted diffusion. There is no evidence of abdominal lymphadenopathy or abdominal ascites. There are no abnormally dilated bowel loops. The visualized osseous structures are grossly unremarkable. IMPRESSION: Cholelithiasis with no MRI evidence of cholecystitis. Questionable small nonobstructing mid to distal CBD stones but with no biliary ductal dilatation. Correlate with patient's symptoms and LFTs as well as bilirubin level. Renal cysts the largest on the right measures 3.8 cm. 2.7 x 2.2 cm left upper renal pole lesion with intermediate to high T1 and T2 signal with central punctate low T1 and high T2 signal which could represent the scar. This could represent a cyst with proteinaceous or blood product material or could represent a solid or complex lesion. Further characterization with MRI is suggested. Posterior right upper renal pole cortical high T1 signal of unclear etiology or clinical significance. Reported By: Cash Weston MD 04/25/191736 Technologist: Dae Berumen Transcribed Date/Time: 04/25/191736 Obstetrician: Cash Weston Printed Date/Time: By: Signed by: Cash Weston Signed on: 25-Apr-2019 17: 38) Problem List - Problems (1) Choledocholithiasis with obstruction Code(s): K80.51 - CALCULUS OF BILE DUCT W/O CHOLANGITIS OR CHOLECYST W OBST (2) Cholelithiasis with choledocholithiasis Code(s): K80.70 - CALCULUS OF GB AND BILE DUCT W/O CHOLECYST W/O OBSTRUCTION Assessment/Plan Assessment: - Painand jaundice due to choledocholithiasis. Given the drop in LFTs there is a chance that his stones have passed so I félix repeat his MRCP. I have discussed the likely need for an ERCP with sphincterotomy, stone removal or stenting with Abi and his and daughter. I informed him of the potential for such complications as perforation, hemorrhage and ERCP induced pancreatitis leading to multiorgan failure with a 5-15% incidence. He has signed an informed consent. Plan: -- Brisk hydration with RL -- antibiotics --repeat MRCP -- ERCP if MRCP confirms stones or other clinical criteria so dictate
[2019-04-26] MEDS: LACTATED RINGERS SOLUTION 1,000 ML/1,000 ML INFUS.BAG IV SCH (22:08)
[2019-04-27] MEDS ORDERED: PIPERACILLIN/TAZOBACTAM 2.25 GM VIAL IVPB ONE ×3 (01:57→17:10)
[2019-04-27] MEDS ORDERED: DEXTROSE 5%-WATER - 50 ML IVPB ONE ×3 (01:58→17:10)
[2019-04-27] MEDS: PIPERACILLIN/TAZOB 2.25 GM 2.25 GM in DEXTROSE 5%-WATER - 50 ML IVPB SCH ×3 (02:01→17:47)
[2019-04-27 08:16] LABS: BASO % 0.7 % (0-2.0); HEMOGLOBIN 13.4 GM/dL (11.7-16.9); MCH 28.4 pg (25.7-33.7); MCHC 33.5 g/dl (32.0-35.9); MEAN CELL VOLUME 84.9 fl (80-96); MEAN PLT VOLUME 8.9 fl (7.5-11.1); MONO % 10.5 % (3.8-10.2); NEUT % 52.8 % (42.8-82.8); PLATELET COUNT 214 K/MM3 (134-434); RBC 4.71 M/mm3 (4.00-5.60); RDW 14.5 % (11.9-15.9); WHITE BLOOD COUNT 7.1 K/mm3 (4.0-10.0)
[2019-04-27 08:31] LABS: ALBUMIN 3.6 g/dl (3.4-5.0); BILIRUBIN,DIRECT 0.5 mg/dL (0.0-0.2); BLOOD UREA NITROGEN 6.6 mg/dL (7-18); CALCIUM 9.1 mg/dL (8.5-10.1); POTASSIUM 3.9 mmol/L (3.5-5.1); TOT PROT 8.4 g/dl (6.4-8.2)
[2019-04-27 08:36] LABS: INR 1.11 (0.83-1.09); PROTHROMBIN TIME (PATIENT) 13.1 SEC (9.7-13.0)
--- NOTE | 2019-04-27 12:26 | PN ---
Progress Note, Physician - Current Medication List Current Medications: Active Medications Piperacillin Sod/Tazobactam (Sod 2.25 gm/ Dextrose) 50 mls @ 100 mls/hr IVPB Q8H-IV KENDAL; Protocol Last Admin: 04/27/19 09:33 Dose: 100 mls/hr Lactated Ringer's (Lactated Ringers Solution) 1,000 ml in 1,000 mls @ 125 mls/ hr IV ASDIR KENDAL Last Admin: 04/26/19 22:08 Dose: 125 mls/hr - Objective Vital Signs: Vital Signs Temperature 98.8 F 04/27/19 06:00 Pulse Rate 69 04/27/19 06:00 Respiratory Rate 18 04/27/19 06:00 Blood Pressure 115/74 04/27/19 06:00 O2 Sat by Pulse Oximetry (%) 97 04/26/19 21:00 Labs: CBC, BMP 04/27/19 07:10 04/27/19 07:10 INR, PTT INR 1.11 (0.83-1.09) H 04/27/19 07:10
--- NOTE | 2019-04-27 15:17 | PN ---
Progress Note, Physician Chief Complaint: Cholecystitis Abdominal Pain History of Present Illness: Previous notes and events reviewed awake and alert NAD denies chest pain or SOB complain of abdominal pain but has improved since admission - Current Medication List Current Medications: Active Medications Piperacillin Sod/Tazobactam (Sod 2.25 gm/ Dextrose) 50 mls @ 100 mls/hr IVPB Q8H-IV KENDAL; Protocol Last Admin: 04/27/19 09:33 Dose: 100 mls/hr Lactated Ringer's (Lactated Ringers Solution) 1,000 ml in 1,000 mls @ 125 mls/ hr IV ASDIR KENDAL Last Admin: 04/26/19 22:08 Dose: 125 mls/hr - Objective Vital Signs: Vital Signs Temperature 98.8 F 04/27/19 06:00 Pulse Rate 69 04/27/19 06:00 Respiratory Rate 18 04/27/19 06:00 Blood Pressure 115/74 04/27/19 06:00 O2 Sat by Pulse Oximetry (%) 97 04/26/19 21:00 Constitutional: Yes: No Distress, Calm Eyes: Yes: Conjunctiva Clear HENT: Yes: Atraumatic Cardiovascular: Yes: Regular Rate and Rhythm Respiratory: Yes: Regular, CTA Bilaterally Gastrointestinal: Yes: Normal Bowel Sounds, Soft, Tenderness (diffuse) Musculoskeletal: Yes: Muscle Weakness Extremities: Yes: WNL Edema: No Neurological: Yes: Alert, Oriented Psychiatric: Yes: Alert, Oriented Labs: CBC, BMP 04/27/19 07:10 04/27/19 07:10 INR, PTT INR 1.11 (0.83-1.09) H 04/27/19 07:10 Microbiology 04/24/19 20:25 Urine - Urine Clean Catch Urine Culture - Final NO GROWTH OBTAINED - ....Imaging Cat Scan: Report Reviewed Ultrasound: Report Reviewed MRI: Report Reviewed Problem List - Problems (1) Choledocholithiasis with obstruction Assessment/Plan: -GI on board -Surgery Consult -NPO -Zosyn -IV hydration -Abdominal US shows partially distended gallbladder with multiple intraluminal stones, thickening of gallbladder wall and inbound sales representative reported positive [place] sign, findings suggest acute cholecystitis -Abdominal MRI shows cholelithiasis with no evidence cholecystitis, questionable small nonobstructing mid to distal CBD stones but with no biliary ductal dilatation -LFTs: AST 88, ALT 284, Alk Phos 154 -repeat Abdominal MRI--if shows stone than will have ERCP Code(s): K80.51 - CALCULUS OF BILE DUCT W/O CHOLANGITIS OR CHOLECYST W OBST Qualifiers: Cholecystitis presence: with cholecystitis Cholecystitis acuity: acute and chronic Qualified Code(s): K80.47 - Calculus of bile duct with acute and chronic cholecystitis with obstruction (2) Cholelithiasis with choledocholithiasis Assessment/Plan: -GI on board -Surgery Consult -NPO -Zosyn -IV hydration -Abdominal US shows partially distended gallbladder with multiple intraluminal stones, thickening of gallbladder wall and inbound sales representative reported positive [place] sign, findings suggest acute cholecystitis -Abdominal MRI shows cholelithiasis with no evidence cholecystitis, questionable small nonobstructing mid to distal CBD stones but with no biliary ductal dilatation -LFTs: AST 88, ALT 284, Alk Phos 154 -repeat Abdominal MRI--if shows stone than will have ERCP Code(s): K80.70 - CALCULUS OF GB AND BILE DUCT W/O CHOLECYST W/O OBSTRUCTION Assessment/Plan see problem list
--- NOTE | 2019-04-27 16:40 | PN.GI ---
GI Progress Note Subjective: GI NOte: Pain free but repeat MRCP reveals CBD filling defects although there are less than before. I have advised proceeding with ERCP tomorrow. He agrees - Objective Vital Signs: Vital Signs Temperature 98.6 F 04/27/19 12:00 Pulse Rate 70 04/27/19 12:00 Respiratory Rate 18 04/27/19 12:00 Blood Pressure 121/70 04/27/19 12:00 O2 Sat by Pulse Oximetry (%) 98 04/27/19 09:00 Laboratory Tests 04/27/19 07:10 Total Bilirubin 1.0 Direct Bilirubin 0.5 H AST 88 H ALT 284 H Alkaline Phosphatase 154 H C-Reactive Protein 4.3 H Total Amylase 55 Lipase 173 Constitutional: No Distress Cardiovascular: Yes: Regular Rate and Rhythm Respiratory: Yes: CTA Bilaterally Gastrointestinal Inspection: Yes: Other ...Auscultate: Yes: Normoactive Bowel Sounds ...Palpate: Yes: Other (nontender) Labs: CBC, BMP 04/27/19 07:10 04/27/19 07:10 INR, PTT INR 1.11 (0.83-1.09) H 04/27/19 07:10 Assessment/Plan Assessment: - Choledocholithiasis persists on repeat MRCP Plan: -- Brisk hydration with RL -- antibiotics -- ERCP tomorrow Problem List - Problems (1) Choledocholithiasis with obstruction Code(s): K80.51 - CALCULUS OF BILE DUCT W/O CHOLANGITIS OR CHOLECYST W OBST Qualifiers: Cholecystitis presence: with cholecystitis Cholecystitis acuity: acute and chronic Qualified Code(s): K80.47 - Calculus of bile duct with acute and chronic cholecystitis with obstruction (2) Cholelithiasis with choledocholithiasis Code(s): K80.70 - CALCULUS OF GB AND BILE DUCT W/O CHOLECYST W/O OBSTRUCTION
[2019-04-28] MEDS: LACTATED RINGERS SOLUTION 1,000 ML/1,000 ML INFUS.BAG IV SCH ×2 (01:14→07:39)
[2019-04-28] MEDS ORDERED: PIPERACILLIN/TAZOBACTAM 2.25 GM VIAL IVPB ONE ×2 (01:21→09:09)
[2019-04-28] MEDS ORDERED: DEXTROSE 5%-WATER - 50 ML IVPB ONE ×3 (01:22→17:37)
[2019-04-28] MEDS: PIPERACILLIN/TAZOB 2.25 GM 2.25 GM in DEXTROSE 5%-WATER - 50 ML IVPB SCH ×2 (01:48→09:12)
[2019-04-28] MEDS ORDERED: INDOMETHACIN 50 MG RECTAL SUPPOSITORY PR ONE (07:00)
[2019-04-28 07:49] LABS: BASO % 0.5 % (0-2.0); EOS % 0.6 % (0-4.5); HEMATOCRIT 39.1 % (35.4-49); LYMPH % 32.6 % (8-40); MCH 28.4 pg (25.7-33.7); MCHC 33.2 g/dl (32.0-35.9); MEAN CELL VOLUME 85.5 fl (80-96); MEAN PLT VOLUME 8.7 fl (7.5-11.1); MONO % 11.5 % (3.8-10.2); NEUT % 54.8 % (42.8-82.8); PLATELET COUNT 217 K/MM3 (134-434); RBC 4.57 M/mm3 (4.00-5.60); RDW 14.4 % (11.9-15.9)
[2019-04-28 08:17] LABS: ALBUMIN 3.4 g/dl (3.4-5.0); BILIRUBIN,TOTAL 0.8 mg/dL (0.2-1); BLOOD UREA NITROGEN 10.3 mg/dL (7-18); POTASSIUM 3.8 mmol/L (3.5-5.1); TOT PROT 8.2 g/dl (6.4-8.2)
[2019-04-28] MEDS ORDERED: MIDAZOLAM HCL 2 MG/2 ML SINGLE DOSE VIAL ONE (10:37)
[2019-04-28] MEDS ORDERED: IOHEXOL 300 MG/ML INFUS..BTL IJ ONE (10:56)
[2019-04-28] MEDS ORDERED: IOHEXOL 300 MG/ML INFUS..BTL IV ONE (10:56)
--- NOTE | 2019-04-28 11:45 | PN ---
Progress Note (short form) - Note Progress Note: GI Procedure Note: Please see ERCP note. Three small stones removed. No anticoagulation for 72 hours. Anticipate GB surgery Problem List - Problems (1) Choledocholithiasis with obstruction Code(s): K80.51 - CALCULUS OF BILE DUCT W/O CHOLANGITIS OR CHOLECYST W OBST Qualifiers: Cholecystitis presence: with cholecystitis Cholecystitis acuity: acute and chronic Qualified Code(s): K80.47 - Calculus of bile duct with acute and chronic cholecystitis with obstruction (2) Cholelithiasis with choledocholithiasis Code(s): K80.70 - CALCULUS OF GB AND BILE DUCT W/O CHOLECYST W/O OBSTRUCTION
[2019-04-28] MEDS ORDERED: LACTATED RINGERS SOLUTION 1,000 ML/1,000 ML INFUS.BAG IV SCH ×2 (12:00→18:00)
[2019-04-28] MEDS ORDERED: ONDANSETRON 4 MG/2 ML VIAL IVPUSH PRN (12:03)
[2019-04-28] MEDS ORDERED: LACTATED RINGERS SOLUTION 1,000 ML IV SCH (12:15)
--- NOTE | 2019-04-28 12:19 | PN ---
Progress Note, Physician History of Present Illness: stable post ercp - Current Medication List Current Medications: Active Medications Piperacillin Sod/Tazobactam (Sod 2.25 gm/ Dextrose) 50 mls @ 100 mls/hr IVPB Q8H-IV KENDAL; Protocol Last Admin: 04/28/19 09:12 Dose: 100 mls/hr Lactated Ringer's (Lactated Ringers Solution) 1,000 ml in 1,000 mls @ 200 mls/ hr IV ASDIR KENDAL Stop: 04/28/19 18:00 Lactated Ringer's (Lactated Ringers Solution) 1,000 ml in 1,000 mls @ 175 mls/ hr IV ASDIR KENDAL Stop: 04/29/19 01:00 Lactated Ringer's (Lactated Ringers Solution) 1,000 ml in 1,000 mls @ 150 mls/ hr IV ASDIR KENDAL Stop: 04/29/19 07:00 Lactated Ringer's (Lactated Ringers Solution) 1,000 ml in 1,000 mls @ 125 mls/ hr IV ASDIR KENDAL Lactated Ringer's (Lactated Ringers Solution) 1,000 mls @ 125 mls/hr IV ASDIR KENDAL Ondansetron HCl (Zofran Injection) 4 mg IVPUSH Q6H PRN PRN Reason: NAUSEA AND/OR VOMITING - Objective Vital Signs: Vital Signs Temperature 98.5 F 04/28/19 06:00 Pulse Rate 70 04/28/19 06:00 Respiratory Rate 18 04/28/19 07:53 Blood Pressure 157/97 04/28/19 06:00 O2 Sat by Pulse Oximetry (%) 97 04/28/19 07:53 Constitutional: Yes: No Distress, Calm Cardiovascular: Yes: Regular Rate and Rhythm Gastrointestinal: Yes: Normal Bowel Sounds, Soft Musculoskeletal: Yes: WNL Extremities: Yes: WNL Neurological: Yes: Alert, Oriented Psychiatric: Yes: Alert, Oriented Labs: CBC, BMP 04/28/19 07:12 04/28/19 07:12 INR, PTT INR 1.11 (0.83-1.09) H 04/27/19 07:10 Assessment/Plan 64 year-old male with no reported PMH. Admitted for acute cholecystitis. Acute cholecystitis Elevated bili Transaminitis cbd stone plan continue current mgmt continue abx final plan rest as per the team
--- NOTE | 2019-04-28 13:06 | PN ---
Progress Note, Physician Chief Complaint: Cholecystitis Abdominal Pain History of Present Illness: Previous notes and events reviewed awake and alert NAD denies chest pain or SOB s/p ERCP today - Current Medication List Current Medications: Active Medications Piperacillin Sod/Tazobactam (Sod 2.25 gm/ Dextrose) 50 mls @ 100 mls/hr IVPB Q8H-IV KENDAL; Protocol Last Admin: 04/28/19 09:12 Dose: 100 mls/hr Lactated Ringer's (Lactated Ringers Solution) 1,000 ml in 1,000 mls @ 200 mls/ hr IV ASDIR KENDAL Stop: 04/28/19 18:00 Lactated Ringer's (Lactated Ringers Solution) 1,000 ml in 1,000 mls @ 175 mls/ hr IV ASDIR KENDAL Stop: 04/29/19 01:00 Lactated Ringer's (Lactated Ringers Solution) 1,000 ml in 1,000 mls @ 150 mls/ hr IV ASDIR KENDAL Stop: 04/29/19 07:00 Lactated Ringer's (Lactated Ringers Solution) 1,000 ml in 1,000 mls @ 125 mls/ hr IV ASDIR KENDAL Lactated Ringer's (Lactated Ringers Solution) 1,000 mls @ 125 mls/hr IV ASDIR KENDAL Ondansetron HCl (Zofran Injection) 4 mg IVPUSH Q6H PRN PRN Reason: NAUSEA AND/OR VOMITING - Objective Vital Signs: Vital Signs Temperature 98.3 F 04/28/19 12:30 Pulse Rate 70 04/28/19 12:30 Respiratory Rate 18 04/28/19 12:30 Blood Pressure 134/84 04/28/19 12:30 O2 Sat by Pulse Oximetry (%) 98 04/28/19 12:30 Constitutional: Yes: No Distress, Calm Eyes: Yes: Conjunctiva Clear HENT: Yes: Atraumatic Cardiovascular: Yes: Regular Rate and Rhythm Respiratory: Yes: Regular, CTA Bilaterally, On Nasal O2 Gastrointestinal: Yes: Normal Bowel Sounds, Soft, Abdomen, Obese Musculoskeletal: Yes: WNL Extremities: Yes: WNL Edema: No Neurological: Yes: Alert, Oriented Psychiatric: Yes: Alert, Oriented Labs: CBC, BMP 04/28/19 07:12 04/28/19 07:12 INR, PTT INR 1.11 (0.83-1.09) H 04/27/19 07:10 Microbiology 04/24/19 20:25 Urine - Urine Clean Catch Urine Culture - Final NO GROWTH OBTAINED - ....Imaging MRI: Report Reviewed Problem List - Problems (1) Choledocholithiasis with obstruction Assessment/Plan: -GI on board -Surgery on board-possible lap cholecystectomy on 04/29/19 -NPO -Zosyn -IV hydration -Abdominal US shows partially distended gallbladder with multiple intraluminal stones, thickening of gallbladder wall and equipment service engineer reported positive [place] sign, findings suggest acute cholecystitis -Abdominal MRI shows cholelithiasis with no evidence cholecystitis, questionable small nonobstructing mid to distal CBD stones but with no biliary ductal dilatation patient had ERCP done today -LFTs: AST 53, ALT 206, Alk Phos 133 Code(s): K80.51 - CALCULUS OF BILE DUCT W/O CHOLANGITIS OR CHOLECYST W OBST Qualifiers: Cholecystitis presence: with cholecystitis Cholecystitis acuity: acute and chronic Qualified Code(s): K80.47 - Calculus of bile duct with acute and chronic cholecystitis with obstruction (2) Cholelithiasis with choledocholithiasis Assessment/Plan: -GI on board -Surgery on board-possible lap cholecystectomy on 04/29/19 -NPO -Zosyn -IV hydration -Abdominal US shows partially distended gallbladder with multiple intraluminal stones, thickening of gallbladder wall and equipment service engineer reported positive [place] sign, findings suggest acute cholecystitis -Abdominal MRI shows cholelithiasis with no evidence cholecystitis, questionable small nonobstructing mid to distal CBD stones but with no biliary ductal dilatation -ERCP done Code(s): K80.70 - CALCULUS OF GB AND BILE DUCT W/O CHOLECYST W/O OBSTRUCTION (3) Renal cyst Assessment/Plan: -Abdominal MRI shows 2.7cm x 2.3cm left renal upper pole lesion as described may be cyst with hemorrhagic/proteinaceous contents -Renal US -renal consult Code(s): N28.1 - CYST OF KIDNEY, ACQUIRED Assessment/Plan see problem list dvt ppx
--- NOTE | 2019-04-28 14:03 | PN ---
Progress Note, Physician Chief Complaint: abdominal pain History of Present Illness: 64 yo male uncertain PMH obesity, has not seen a health care provider in more than 5 years. Patient presented to the ED for evaluation of constipation and abdominal pain x 2 days. pain has improved since admission. - Current Medication List Current Medications: Active Medications Piperacillin Sod/Tazobactam (Sod 2.25 gm/ Dextrose) 50 mls @ 100 mls/hr IVPB Q8H-IV KENDAL; Protocol Last Admin: 04/28/19 09:12 Dose: 100 mls/hr Lactated Ringer's (Lactated Ringers Solution) 1,000 ml in 1,000 mls @ 200 mls/ hr IV ASDIR KENDAL Stop: 04/28/19 18:00 Lactated Ringer's (Lactated Ringers Solution) 1,000 ml in 1,000 mls @ 175 mls/ hr IV ASDIR KENDAL Stop: 04/29/19 01:00 Lactated Ringer's (Lactated Ringers Solution) 1,000 ml in 1,000 mls @ 150 mls/ hr IV ASDIR KENDAL Stop: 04/29/19 07:00 Lactated Ringer's (Lactated Ringers Solution) 1,000 ml in 1,000 mls @ 125 mls/ hr IV ASDIR KENDAL Lactated Ringer's (Lactated Ringers Solution) 1,000 mls @ 125 mls/hr IV ASDIR KENDAL Ondansetron HCl (Zofran Injection) 4 mg IVPUSH Q6H PRN PRN Reason: NAUSEA AND/OR VOMITING - Objective Vital Signs: Vital Signs Temperature 98.3 F 04/28/19 12:30 Pulse Rate 70 04/28/19 12:30 Respiratory Rate 18 04/28/19 12:30 Blood Pressure 134/84 04/28/19 12:30 O2 Sat by Pulse Oximetry (%) 98 04/28/19 12:30 Constitutional: Yes: Well Nourished, No Distress, Calm, Obese Eyes: Yes: Conjunctiva Clear, EOM Intact HENT: Yes: Atraumatic, Normocephalic Neck: Yes: Supple, Trachea Midline Cardiovascular: Yes: Regular Rate and Rhythm, S1, S2 Respiratory: Yes: Regular, CTA Bilaterally Gastrointestinal: Yes: Normal Bowel Sounds, Soft, Abdomen, Obese, Tenderness ( RUQ) ...Rectal Exam: Yes: Deferred Genitourinary: No: CVA Tenderness - Left, CVA Tenderness - Right Breast(s): No: Mass, Skin Changes Musculoskeletal: No: Muscle Pain, Muscle Weakness Extremities: No: Cold, Cool, Cyanosis Edema: No Peripheral Pulses WNL: Yes Peripheral Pulses: Left Radial: 2+, Right Radial: 2+, Left Doralis Pedis: 2+, Right Dorsalis Pedis: 2+, Left Femoral: 2+, Right Femoral: 2+ Integumentary: No: Jaundice, Rash Neurological: Yes: Alert, Oriented Psychiatric: Yes: Alert, Oriented Labs: CBC, BMP 04/28/19 07:12 04/28/19 07:12 INR, PTT INR 1.11 (0.83-1.09) H 04/27/19 07:10 Problem List - Problems (1) Choledocholithiasis with obstruction Assessment/Plan: 64yo male with choledocholithiasis with CBD obstrutcions, s/p ERCP NPO and IVF hydration IV antibiotics Adequate analgesia trend labs Discussed with patient risks, benefits and alternatives of laparoscopic possible open cholecystectomy, including but not limited to bleeding, infection , injury to adjacent structures, leak or injury, intraabdominal abscess, incisional hernia, need for further procedures, ; alternatives include antibiotics, delayed or no surgery - risks of this include failure of nonoperative therapy, perforation, sepsis, recurrence, . Patient desires to proceed with operation - will take to OR for above. Informed consent signed for same. Code(s): K80.51 - CALCULUS OF BILE DUCT W/O CHOLANGITIS OR CHOLECYST W OBST Qualifiers: Cholecystitis presence: with cholecystitis Cholecystitis acuity: acute and chronic Qualified Code(s): K80.47 - Calculus of bile duct with acute and chronic cholecystitis with obstruction (2) Obesity (BMI 30-39.9) Code(s): E66.9 - OBESITY, UNSPECIFIED (3) RUQ abdominal pain Code(s): R10.11 - RIGHT UPPER QUADRANT PAIN (4) Jaundice Code(s): R17 - UNSPECIFIED JAUNDICE (5) Abdominal pain in male Code(s): R10.9 - UNSPECIFIED ABDOMINAL PAIN (6) Constipation Code(s): K59.00 - CONSTIPATION, UNSPECIFIED Qualifiers: Constipation type: unspecified constipation type Qualified Code(s): K59.00 - Constipation, unspecified
[2019-04-28] MEDS ORDERED: PIPERACILLIN/TAZOBACTAM 3.375 GM VIAL IVPB ONE (17:36)
[2019-04-28] MEDS: PIPERACILLIN/TAZOB 3.375 GM 3.375 GM in DEXTROSE 5%-WATER - 50 ML IVPB SCH (18:22)
--- NOTE | 2019-04-28 21:51 | CON.NEP ---
Consult Consult Specialty:: nephrology Referred by:: jose raul sosa Reason for Consultation:: renal cyst - History of Present Illness Chief Complaint: abd pain, gall stones History of Present Illness: pt is referred for eval of renal cyst with complex features he denies any flank pain or hematuria the cyst was found incidentally on abdominal MRI it shows 2.7cm x 2.3cm left renal upper pole lesion "cyst with hemorrhagic/ proteinaceous contents" s/p admission for mgmt of choledocholithiasis with CBD obstrutcions, s/p ERCP pending laparoscopic possible open cholecystectomy, OBESITY, UNSPECIFIED CONSTIPATION, UNSPECIFIED - History Source History Provided By: Patient Limitations to Obtaining History: No Limitations - Past Medical History Hepatobiliary: Yes: Cholelithiasis, Choledocholithiasis, Other (fatty liver) Additional Medical History: obesity - Past Surgical History Past Surgical History: Yes: None - Alcohol/Substance Use Hx Alcohol Use: No History of Substance Use: reports: None - Smoking History Smoking history: Never smoked - Social History Usual Living Arrangement: With Spouse ADL: Independent Occupation: taxi History of Recent Travel: No Home Medications - Allergies Allergies/Adverse Reactions: Allergies Allergy/AdvReac Type Severity Reaction Status Date / Time No Known Allergies Allergy Verified 04/24/19 17:58 - Home Medications Home Medications: Ambulatory Orders NK [No Known Home Medication] 04/26/19 Family Disease History - Family Disease History Family Disease History: Other: Father ( 64 ? [place]), Mother ( 82) Nephrology Consult - Height Height: 5 ft 6 in - Weight Weight: 229 lb 9.6 oz - BMI Body Mass Index (BMI): 37.0 - Lab Results CBC,BMP: CBC, BMP 04/28/19 07:12 04/28/19 07:12 Anion Gap: Anion Gap Anion Gap 6 MMOL/L (8-16) L 04/28/19 07:12 - Physical Examination Vital Signs: Vital Signs Temperature 97.4 F L 04/28/19 14:11 Pulse Rate 76 04/28/19 14:11 Respiratory Rate 19 04/28/19 14:11 Blood Pressure 111/74 04/28/19 14:11 O2 Sat by Pulse Oximetry (%) 98 04/28/19 12:30 Constitutional: Yes: Well Nourished, No Distress, Calm Eyes: Yes: WNL, Conjunctiva Clear, EOM Intact HENT: Yes: WNL, Atraumatic, Normocephalic Neck: Yes: WNL, Supple, Trachea Midline Cardiovascular: Yes: WNL, Regular Rate and Rhythm Respiratory: Yes: WNL, Regular, CTA Bilaterally Gastrointestinal: Yes: WNL, Normal Bowel Sounds Renal/: Yes: WNL Musculoskeletal: Yes: WNL Extremities: Yes: WNL Edema: No Peripheral Pulses WNL: Yes Integumentary: Yes: WNL Neurological: Yes: WNL, Alert, Oriented Psychiatric: Yes: WNL, Alert, Oriented Assessment/Plan 4 y/o m admitted with gallstones and complications referred for incidental finding of possible left renal complex cyst he has no sign or symptoms of malignancy Plan agree with ultasound for better definition of the cyst add urine cytology
[2019-04-29] MEDS ORDERED: LACTATED RINGERS SOLUTION 1,000 ML/1,000 ML INFUS.BAG IV SCH (01:00)
[2019-04-29] MEDS ORDERED: DEXTROSE 5%-WATER - 50 ML IVPB ONE ×3 (01:59→17:14)
[2019-04-29] MEDS ORDERED: PIPERACILLIN/TAZOBACTAM 3.375 GM VIAL IVPB ONE ×3 (01:59→17:14)
[2019-04-29] MEDS: PIPERACILLIN/TAZOB 3.375 GM 3.375 GM in DEXTROSE 5%-WATER - 50 ML IVPB SCH ×3 (02:18→17:26)
[2019-04-29] MEDS: LACTATED RINGERS SOLUTION 1,000 ML/1,000 ML INFUS.BAG IV SCH ×2 (05:51→07:49)
[2019-04-29 07:35] LABS: BASO % 0.5 % (0-2.0); EOS % 2.7 % (0-4.5); HEMATOCRIT 38.6 % (35.4-49); HEMOGLOBIN 12.7 GM/dL (11.7-16.9); LYMPH % 27.2 % (8-40); MCH 28.5 pg (25.7-33.7); MCHC 32.9 g/dl (32.0-35.9); MEAN CELL VOLUME 86.7 fl (80-96); MEAN PLT VOLUME 9.1 fl (7.5-11.1); MONO % 11.6 % (3.8-10.2); PLATELET COUNT 212 K/MM3 (134-434); RBC 4.45 M/mm3 (4.00-5.60); RDW 14.2 % (11.9-15.9); WHITE BLOOD COUNT 7.3 K/mm3 (4.0-10.0)
[2019-04-29] MEDS ORDERED: ONDANSETRON 4 MG/2 ML VIAL IVPUSH PRN (08:13)
[2019-04-29] MEDS ORDERED: PROMETHAZINE HCL 25 MG/1 ML VIAL IVPB PRN (08:13)
[2019-04-29] MEDS ORDERED: LACTATED RINGERS SOLUTION 1,000 ML IV SCH (08:15)
[2019-04-29 08:17] LABS: ALBUMIN 3.4 g/dl (3.4-5.0); ALK PHOS 114 U/L (45-117); AMYLASE > 1300 U/L (25-115); ANION GAP 5 MMOL/L (8-16); BILIRUBIN,DIRECT 0.4 mg/dL (0.0-0.2); BILIRUBIN,TOTAL 0.7 mg/dL (0.2-1); BLOOD UREA NITROGEN 8.4 mg/dL (7-18); CALCIUM 8.7 mg/dL (8.5-10.1); CHLORIDE 104 mmol/L (98-107); CO2 31 mmol/L (21-32); GLUCOSE,RANDOM 122 mg/dL (74-106); LIPASE > 30000 U/L (73-393); POTASSIUM 3.7 mmol/L (3.5-5.1); SGOT/AST 39 U/L (15-37); SGPT/ALT 152 U/L (13-61); SODIUM 140 mmol/L (136-145); TOT PROT 7.7 g/dl (6.4-8.2)
[2019-04-29] MEDS ORDERED: BUPIVACAINE HCL/PF 0.5% (5 MG/ML) 30 ML VIAL IJ ONE (08:23)
--- NOTE | 2019-04-29 10:00 | PN ---
Progress Note, Physician History of Present Illness: had substernal pain surgery cancelled still has pain - Current Medication List Current Medications: Active Medications Fentanyl (Sublimaze Injection -) 50 mcg IVPUSH [id number] PRN PRN Reason: PAIN-PACU ORDER X 4 DOSES ONLY Stop: 04/30/19 08:12 Lactated Ringer's (Lactated Ringers Solution) 1,000 ml in 1,000 mls @ 125 mls/ hr IV ASDIR KENDAL Last Admin: 04/29/19 07:49 Dose: Not Given Piperacillin Sod/Tazobactam (Sod 3.375 gm/ Dextrose) 50 mls @ 100 mls/hr IVPB Q8H-IV KENDAL; Protocol Last Admin: 04/29/19 02:18 Dose: 100 mls/hr Ondansetron HCl (Zofran Injection) 4 mg IVPUSH Q6H PRN PRN Reason: NAUSEA AND/OR VOMITING Promethazine HCl (Phenergan Injection -) 12.5 mg IVPB Q6H PRN PRN Reason: NAUSEA-FOR RESCUE AFTER 15 MIN Stop: 04/30/19 08:12 - Objective Vital Signs: Vital Signs Temperature 98.3 F 04/29/19 06:05 Pulse Rate 78 04/29/19 06:05 Respiratory Rate 18 04/29/19 06:05 Blood Pressure 140/75 04/29/19 06:05 O2 Sat by Pulse Oximetry (%) 98 04/29/19 03:58 Constitutional: Yes: Calm, Mild Distress Cardiovascular: Yes: S1, S2 Respiratory: Yes: Regular, CTA Bilaterally Gastrointestinal: Yes: Normal Bowel Sounds, Soft Musculoskeletal: Yes: WNL Extremities: Yes: WNL Neurological: Yes: Alert, Oriented Psychiatric: Yes: Alert, Oriented Labs: CBC, BMP 04/29/19 06:45 04/29/19 06:45 INR, PTT INR 1.11 (0.83-1.09) H 04/27/19 07:10 Assessment/Plan 64 year-old male with no reported PMH. Admitted for acute cholecystitis. Acute cholecystitis Elevated bili Transaminitis cbd stone plan continue current mgmt continue abx awaiting for surgery rest as per the team
--- NOTE | 2019-04-29 11:08 | EKG ---
Test Reason : Blood Pressure : / mmHG Vent. Rate : 071 BPM Atrial Rate : 071 BPM P-R Int : 172 ms QRS Dur : 094 ms QT Int : 410 ms P-R-T Axes : 036 -10 001 degrees QTc Int : 445 ms NORMAL SINUS RHYTHM NORMAL ECG WHEN COMPARED WITH ECG OF 25-APR-2019 00:52, PREMATURE VENTRICULAR COMPLEXES ARE NO LONGER PRESENT Confirmed by GABRIELE HARDEN MD ([id number]) on 04/29/2019 11:08:10 AM Referred By: Confirmed By:GABRIELE HARDEN MD
--- NOTE | 2019-04-29 12:05 | PN ---
Progress Note (short form) - Note Progress Note: GI follow up s/p ERCP with stone extraction Patient was pain free post procedure but at 3am developed epigastric pain, mild , 4/10. No N/V. Ate breakfast and did not exacerbate pain. Vital Signs Temp 98.3 F 04/29/19 06:05 Pulse 78 04/29/19 06:05 Resp 18 04/29/19 06:05 BP 140/75 04/29/19 06:05 Pulse Ox 98 04/29/19 03:58 NAD Anicteric Obese, small reducible umbilical hernia, soft ND mild epigastric ttp Labs reviewed CBC, BMP 04/29/19 06:45 04/29/19 06:45 Hepatic Panel Total Bilirubin 0.7 mg/dL (0.2-1) 04/29/19 06:45 Direct Bilirubin 0.4 mg/dL (0.0-0.2) H 04/29/19 06:45 AST 39 U/L (15-37) H 04/29/19 06:45 ALT 152 U/L (13-61) H 04/29/19 06:45 Alkaline Phosphatase 114 U/L (45-117) 04/29/19 06:45 Albumin 3.4 g/dl (3.4-5.0) 04/29/19 06:45 Amylase >1300 Lipase >30K Impression: choledocholithiasis s/p ERCP with stone extraction. Now with very mild post-ERCP pancreatitis. Given how mild, can continue diet; continue IVF. Anticipate rapid improvement. Abx and timing of cholecystectomy per surgery.
--- NOTE | 2019-04-29 12:09 | PN ---
Progress Note, Physician History of Present Illness: Pt seen and examined at bedside. He is awake and alert. He denies hematuria, dysuria, or flank pain. - Current Medication List Current Medications: Active Medications Fentanyl (Sublimaze Injection -) 50 mcg IVPUSH [id number] PRN PRN Reason: PAIN-PACU ORDER X 4 DOSES ONLY Stop: 04/30/19 08:12 Lactated Ringer's (Lactated Ringers Solution) 1,000 ml in 1,000 mls @ 125 mls/ hr IV ASDIR KENDAL Last Admin: 04/29/19 07:49 Dose: Not Given Piperacillin Sod/Tazobactam (Sod 3.375 gm/ Dextrose) 50 mls @ 100 mls/hr IVPB Q8H-IV KENDAL; Protocol Last Admin: 04/29/19 10:05 Dose: 100 mls/hr Ondansetron HCl (Zofran Injection) 4 mg IVPUSH Q6H PRN PRN Reason: NAUSEA AND/OR VOMITING Promethazine HCl (Phenergan Injection -) 12.5 mg IVPB Q6H PRN PRN Reason: NAUSEA-FOR RESCUE AFTER 15 MIN Stop: 04/30/19 08:12 - Objective Vital Signs: Vital Signs Temperature 98.3 F 04/29/19 06:05 Pulse Rate 78 04/29/19 06:05 Respiratory Rate 18 04/29/19 06:05 Blood Pressure 140/75 04/29/19 06:05 O2 Sat by Pulse Oximetry (%) 98 04/29/19 03:58 Constitutional: Yes: Calm Eyes: Yes: Conjunctiva Clear HENT: Yes: Atraumatic Neck: Yes: Supple Cardiovascular: Yes: S1, S2 Respiratory: Yes: CTA Bilaterally Gastrointestinal: Yes: Normal Bowel Sounds, Soft Genitourinary: Yes: WNL Musculoskeletal: Yes: WNL Edema: No Integumentary: Yes: WNL Neurological: Yes: Oriented Psychiatric: Yes: Oriented Labs: CBC, BMP 04/29/19 06:45 04/29/19 06:45 INR, PTT INR 1.11 (0.83-1.09) H 04/27/19 07:10 Assessment/Plan Current Medications Generic Name Dose Route Start Last Admin Trade Name Freq PRN Reason Stop Dose Admin Fentanyl 50 mcg 04/29/19 08:13 Sublimaze Injection - IVPUSH 04/30/19 08:12 [id number] PRN PAIN-PACU ORDER X 4 DOSES ONLY Lactated Ringer's 1,000 ml in 1,000 mls @ 125 mls/hr 04/29/19 07:00 04/29/19 07:49 Lactated Ringers Solution IV Not Given ASDIR KENDAL Piperacillin Sod/Tazobactam 50 mls @ 100 mls/hr 04/28/19 18:00 04/29/19 10:05 Sod 3.375 gm/ Dextrose IVPB 100 mls/hr Q8H-IV KENDAL Administration Protocol Ondansetron HCl 4 mg 04/28/19 12:03 Zofran Injection IVPUSH Q6H PRN NAUSEA AND/OR VOMITING Promethazine HCl 12.5 mg 04/29/19 08:13 Phenergan Injection - IVPB 04/30/19 08:12 Q6H PRN NAUSEA-FOR RESCUE AFTER 15 MIN Impression 1. cholelithiasis 2. left renal lesion Plan - check renal ultrasound - urology eval - check ua - will need follow up
--- NOTE | 2019-04-29 12:49 | PN ---
Progress Note, Physician Chief Complaint: patient seen and examiend needs cardiac clearance prior to srugery awaiting cholecystectomy - Current Medication List Current Medications: Active Medications Fentanyl (Sublimaze Injection -) 50 mcg IVPUSH [id number] PRN PRN Reason: PAIN-PACU ORDER X 4 DOSES ONLY Stop: 04/30/19 08:12 Lactated Ringer's (Lactated Ringers Solution) 1,000 ml in 1,000 mls @ 125 mls/ hr IV ASDIR KENDAL Last Admin: 04/29/19 07:49 Dose: Not Given Piperacillin Sod/Tazobactam (Sod 3.375 gm/ Dextrose) 50 mls @ 100 mls/hr IVPB Q8H-IV KENDAL; Protocol Last Admin: 04/29/19 10:05 Dose: 100 mls/hr Ondansetron HCl (Zofran Injection) 4 mg IVPUSH Q6H PRN PRN Reason: NAUSEA AND/OR VOMITING Promethazine HCl (Phenergan Injection -) 12.5 mg IVPB Q6H PRN PRN Reason: NAUSEA-FOR RESCUE AFTER 15 MIN Stop: 04/30/19 08:12 - Objective Vital Signs: Vital Signs Temperature 98.3 F 04/29/19 06:05 Pulse Rate 78 04/29/19 06:05 Respiratory Rate 18 04/29/19 06:05 Blood Pressure 140/75 04/29/19 06:05 O2 Sat by Pulse Oximetry (%) 98 04/29/19 03:58 Constitutional: Yes: Calm Cardiovascular: Yes: Regular Rate and Rhythm, S1, S2 Respiratory: Yes: CTA Bilaterally Gastrointestinal: Yes: Normal Bowel Sounds, Soft, Hernia (umbilbical) Neurological: Yes: Alert, Oriented Labs: CBC, BMP 04/29/19 06:45 04/29/19 06:45 INR, PTT INR 1.11 (0.83-1.09) H 04/27/19 07:10 Problem List - Problems (1) Abdominal pain Assessment/Plan: iv abx cardiac clearance plan for surgery trend LFT and Amylase Code(s): R10.9 - UNSPECIFIED ABDOMINAL PAIN Qualifiers: Abdominal location: generalized Qualified Code(s): R10.84 - Generalized abdominal pain (2) Renal cyst Assessment/Plan: renal sonogram Code(s): N28.1 - CYST OF KIDNEY, ACQUIRED
--- NOTE | 2019-04-29 13:04 | PN ---
Progress Note (short form) - Note Progress Note: Anesthesia POD#1 S/P ERCP under [facility] VSS,no N/V,no pain. Awaiting cholecystectomy Lily Cooper MD.
--- NOTE | 2019-04-29 15:21 | CON.CARD ---
Consult Consult Specialty:: Cardiology Referred by:: Dr. Urias Reason for Consultation:: preop cardiac evaluation - History of Present Illness Chief Complaint: abdominal pain History of Present Illness: 64 year old man with pmh obesity admitted with abdominal pain found to have cholecystitis, s/p ERCP and planned for cholecystectomy, c/o abd pain today and surgery was postponed for cardiac evaluation for perioperative cardiac risk stratification. pt seen and examined today in nad. states the pain today was the same as what brought him to the hospital. located epigastric/mid gastric on and off. never had this pain before. denies having had any chest pain or sob either at rest or with exertion. no palpitations, pnd, orthopnea or LE edema. - History Source History Provided By: Patient, Family Member Limitations to Obtaining History: No Limitations - Past Medical History Hepatobiliary: Yes: Cholelithiasis, Choledocholithiasis, Other (fatty liver) Additional Medical History: obesity - Past Surgical History Past Surgical History: Yes: None - Alcohol/Substance Use Hx Alcohol Use: No History of Substance Use: reports: None - Smoking History Smoking history: Never smoked - Social History Usual Living Arrangement: With Spouse ADL: Independent Occupation: taxi History of Recent Travel: No Home Medications - Allergies Allergies/Adverse Reactions: Allergies Allergy/AdvReac Type Severity Reaction Status Date / Time No Known Allergies Allergy Verified 04/24/19 17:58 - Home Medications Home Medications: Ambulatory Orders NK [No Known Home Medication] 04/26/19 Family Disease History - Family Disease History Family Disease History: Other: Father ( 64 ? [place]), Mother ( 82) Review of Systems - Review of Systems Constitutional: denies: No Symptoms, Chills, Diaphoresis, Fever, Lethargy, Loss of Appetite, Malaise, Night Sweats, Unintentional Wgt. Loss, Weakness, Other Eyes: denies: No Symptoms, Blind Spots, Blurred Vision, Double Vision, Eye Pain , Floaters, Photophobia, Recent Change in Vision, Other HENT: denies: No Symptoms, Difficult Swallowing, Ear Discharge, Ear Pain, Epistaxis, Gingival Bleeding, Hearing Loss, Mouth Swelling, Nasal Congestion, Ocular Prosthesis, Throat Pain, Toothache, Ringing in Ears, Other Neck: denies: No Symptoms, Decreased ROM, Lumps, Pain on Movement, Stiffness, Swollen Glands, Tenderness, Other Cardiovascular: denies: No Symptoms, Chest Pain, Edema, Palpitations, Shortness of Breath, Other Respiratory: denies: No Symptoms, Cough, Exercise Intolerance, Hemoptysis, Orthopnea, PND, Snoring, SOB, SOB on Exertion, Wheezing, Other Gastrointestinal: reports: Abdominal Pain, Nausea. denies: No Symptoms, Bloating, Constipation, Diarrhea, Dysphagia, Indigestion, Melena, Rectal Bleeding, Vomiting, Vomiting Blood, Other Genitourinary: denies: No Symptoms, Burning, Discharge, Dysuria, Flank Pain, Frequency, Hematuria, Incontinence, Lesions, Menses, Pain, Testicular Mass, Testicular Pain, Testicular Swelling, Urgency, Vaginal Bleeding, Other Breasts: denies: No Symptoms Reported, See HPI, Breast Implants, Discharge from Nipple, Lumps, Pain, Skin Changes, Other Musculoskeletal: denies: No Symptoms, Back Pain, Crepitus, Decreased ROM, Extremity Pain, Joint Pain, Joint Swelling, Muscle Pain, Muscle Cramps, Muscle Weakness, Other Integumentary: denies: No Symptoms, Blister, Bruising, Change in Color, Eczema, Erythema, Incision, Lesions, Lump, Pallor, Pruritis, Rash, Wound, Other Neurological: denies: No Symptoms, Change in LOC, Change in Speech, Confusion, Dizziness, Headache, Incoordination, Numbness, Parasthesia, Pre-Existing Deficit , Seizure, Syncope, Tremors, Unsteady Gait, Weakness, Other Endocrine: denies: No Symptoms, Excessive Sweating, Flushing, Increased Hunger, Increased Thirst, Intolerance to Cold, Intolerance to Heat, Unexplained Weight Gain, Unexplained Weight Loss, Other Hematology/Lymphatic: denies: No Symptoms, Easily Bruised, Excessive Bleeding, Swollen Glands, Other Psychiatric: denies: No Symptoms, Altered Sleep Pattern, Anxiety, Depression, Hallucinations, Panic, Paranoia, Suicidal, Other Vital Signs: Vital Signs Temperature 98.3 F 04/29/19 06:05 Pulse Rate 78 04/29/19 06:05 Respiratory Rate 18 04/29/19 06:05 Blood Pressure 140/75 04/29/19 06:05 O2 Sat by Pulse Oximetry (%) 98 04/29/19 03:58 Constitutional: Yes: No Distress, Calm, Obese Eyes: Yes: Conjunctiva Clear, EOM Intact, PERRL HENT: Yes: Atraumatic, Normocephalic Neck: Yes: Supple, Trachea Midline Respiratory: Yes: Regular, CTA Bilaterally. No: Rales, Rhonchi, SOB, Wheezes Gastrointestinal: Yes: Normal Bowel Sounds, Soft, Tenderness. No: Distention Cardiovascular: Yes: Regular Rate and Rhythm. No: Bradycardia, Tachycardia, Pulse Irregular, Gallop, Rub, Varicosities JVD: No Carotid Bruit: No PMI: Non-Displaced Heart Sounds: Yes: S1, S2. No: Split S2, S3, S4, Clicks, Gallop, Rub, Bruit Murmur: No: Systolic Murmur, Diastolic Murmur Extremities: Yes: WNL Edema: No Peripheral Pulses WNL: Yes Peripheral Pulses: 2+ Left Doralis Pedis, 2+ Right Dorsalis Pedis Neurological: Yes: Alert, Oriented Psychiatric: Yes: Alert, Oriented - Other Data Labs, Other Data: CBC, BMP 04/29/19 06:45 04/29/19 06:45 INR, PTT INR 1.11 (0.83-1.09) H 04/27/19 07:10 nsr, normal ECG Imaging - Results Chest X-ray: Report Reviewed, Image Reviewed EKG: Report Reviewed, Image Reviewed Other: Report Reviewed, Image Reviewed Assessment/Plan 64 year old man with pmh obesity admitted with abdominal pain found to have cholecystitis, s/p ERCP and planned for cholecystectomy, c/o abd pain today and surgery was postponed for cardiac evaluation for perioperative cardiac risk stratification. states the pain today was the same as what brought him to the hospital. located epigastric/mid gastric on and off. never had this pain before. denies having had any chest pain or sob either at rest or with exertion. no palpitations, pnd, orthopnea or LE edema. Preop cardiac risk assessment -at this time there is no cardiac contraindication to the planned procedure and would recommend to proceed without delay for additional cardiac work up. -pain is abdominal, no chest pain, likely related to cholecystitis/ pancreatitits after ERCP -EKG normal, BP adequately controlled for surgery -[facility] routine perioperative monitoring. Please call with any additional questions. Will see as needed.
--- NOTE | 2019-04-29 16:09 | PN ---
Progress Note, Physician Chief Complaint: abdominal pain History of Present Illness: 64 yo male uncertain PMH obesity, has not seen a health care provider in more than 5 years. Patient presented to the ED for evaluation of constipation and abdominal pain x 2 days. pain has improved since admission. - Current Medication List Current Medications: Active Medications Fentanyl (Sublimaze Injection -) 50 mcg IVPUSH [id number] PRN PRN Reason: PAIN-PACU ORDER X 4 DOSES ONLY Stop: 04/30/19 08:12 Lactated Ringer's (Lactated Ringers Solution) 1,000 ml in 1,000 mls @ 125 mls/ hr IV ASDIR KENDAL Last Admin: 04/29/19 07:49 Dose: Not Given Piperacillin Sod/Tazobactam (Sod 3.375 gm/ Dextrose) 50 mls @ 100 mls/hr IVPB Q8H-IV KENDAL; Protocol Last Admin: 04/29/19 10:05 Dose: 100 mls/hr Ondansetron HCl (Zofran Injection) 4 mg IVPUSH Q6H PRN PRN Reason: NAUSEA AND/OR VOMITING Promethazine HCl (Phenergan Injection -) 12.5 mg IVPB Q6H PRN PRN Reason: NAUSEA-FOR RESCUE AFTER 15 MIN Stop: 04/30/19 08:12 - Objective Vital Signs: Vital Signs Temperature 98.3 F 04/29/19 06:05 Pulse Rate 78 04/29/19 06:05 Respiratory Rate 18 04/29/19 06:05 Blood Pressure 140/75 04/29/19 06:05 O2 Sat by Pulse Oximetry (%) 98 04/29/19 03:58 Vital Signs Period Temp Pulse Resp BP Sys/Gandara Pulse Ox Last 24 Hr 98.3 F-98.8 F 65-78 18-18 128-151/75-94 98-98 Intake & Output 04/29/19 04/29/19 04/29/19 07:59 15:59 23:59 Intake Total 320 Balance 320 Intake: Oral Supplement 320 Other: Voiding Method Toilet # Unmeasured Voids Void 2 Bowel Movement No Constitutional: Yes: Well Nourished, No Distress, Calm, Obese Eyes: Yes: Conjunctiva Clear, EOM Intact HENT: Yes: Atraumatic, Normocephalic Neck: Yes: Supple, Trachea Midline Cardiovascular: Yes: Regular Rate and Rhythm, S1, S2 Respiratory: Yes: Regular, CTA Bilaterally Gastrointestinal: Yes: Normal Bowel Sounds, Soft, Abdomen, Obese, Tenderness, Tenderness, Epigastrium. No: Tenderness, Rebound ...Rectal Exam: Yes: Deferred Genitourinary: No: CVA Tenderness - Left, CVA Tenderness - Right Breast(s): No: Mass, Skin Changes Musculoskeletal: No: Joint Swelling, Muscle Weakness Extremities: No: Cool, Cyanosis Edema: No Peripheral Pulses WNL: Yes Peripheral Pulses: Left Radial: 2+, Right Radial: 2+, Left Doralis Pedis: 2+, Right Dorsalis Pedis: 2+, Left Femoral: 2+, Right Femoral: 2+ Integumentary: No: Jaundice, Rash Neurological: Yes: Alert, Oriented Psychiatric: Yes: Alert, Oriented Labs: CBC, BMP 04/29/19 06:45 04/29/19 06:45 INR, PTT INR 1.11 (0.83-1.09) H 04/27/19 07:10 Problem List - Problems (1) Choledocholithiasis with obstruction Assessment/Plan: 64yo male with choledocholithiasis with CBD obstrutcions, s/p ERCP NPO and IVF hydration IV antibiotics Adequate analgesia surgery 05/01 trend labs Discussed with patient risks, benefits and alternatives of laparoscopic possible open cholecystectomy, including but not limited to bleeding, infection , injury to adjacent structures, leak or injury, intraabdominal abscess, incisional hernia, need for further procedures, ; alternatives include antibiotics, delayed or no surgery - risks of this include failure of nonoperative therapy, perforation, sepsis, recurrence, . Patient desires to proceed with operation - will take to OR for above. Informed consent signed for same. Code(s): K80.51 - CALCULUS OF BILE DUCT W/O CHOLANGITIS OR CHOLECYST W OBST Qualifiers: Cholecystitis presence: with cholecystitis Cholecystitis acuity: acute and chronic Qualified Code(s): K80.47 - Calculus of bile duct with acute and chronic cholecystitis with obstruction (2) Obesity (BMI 30-39.9) Code(s): E66.9 - OBESITY, UNSPECIFIED (3) RUQ abdominal pain Code(s): R10.11 - RIGHT UPPER QUADRANT PAIN (4) Jaundice Code(s): R17 - UNSPECIFIED JAUNDICE (5) Abdominal pain in male Code(s): R10.9 - UNSPECIFIED ABDOMINAL PAIN (6) Constipation Code(s): K59.00 - CONSTIPATION, UNSPECIFIED Qualifiers: Constipation type: unspecified constipation type Qualified Code(s): K59.00 - Constipation, unspecified
--- NOTE | 2019-04-29 16:34 | CON.GU ---
Consult Consult Specialty:: urology Referred by:: Kraig Reason for Consultation:: left renal mass - History of Present Illness Chief Complaint: left renal mass History of Present Illness: Patient is a 64 year old male admitted with choledocholithiasis/cholelithiasis s /p MRCP who is found incidentally to have a complex left renal cyst. Patient denies gross hematuria, family history of cancer, or left renal colic. The patient is currently feeling better from his GI issues. Patient reports mild to moderate prostatism. - History Source History Provided By: Patient, Significant Other, Medical Record Limitations to Obtaining History: No Limitations - Past Medical History Hepatobiliary: Yes: Cholelithiasis, Choledocholithiasis, Other (fatty liver) Additional Medical History: obesity - Past Surgical History Past Surgical History: Yes: None - Alcohol/Substance Use Hx Alcohol Use: No History of Substance Use: reports: None - Smoking History Smoking history: Never smoked - Social History Usual Living Arrangement: With Spouse ADL: Independent Occupation: taxi History of Recent Travel: No Home Medications - Allergies Allergies/Adverse Reactions: Allergies Allergy/AdvReac Type Severity Reaction Status Date / Time No Known Allergies Allergy Verified 04/24/19 17:58 - Home Medications Home Medications: Ambulatory Orders NK [No Known Home Medication] 04/26/19 Family Disease History - Family Disease History Family Disease History: Other: Father ( 64 ? [place]), Mother ( 82) Physical Exam- Vital Signs: Vital Signs Temperature 98.3 F 04/29/19 06:05 Pulse Rate 78 04/29/19 06:05 Respiratory Rate 18 04/29/19 06:05 Blood Pressure 140/75 04/29/19 06:05 O2 Sat by Pulse Oximetry (%) 98 04/29/19 03:58 Constitutional: Yes: Well Nourished, No Distress, Calm Eyes: Yes: WNL, Conjunctiva Clear HENT: Yes: WNL, Atraumatic, Normocephalic Neck: Yes: WNL, Supple, Trachea Midline Cardiovascular: Yes: Regular Rate and Rhythm Respiratory: Yes: Regular Gastrointestinal: Yes: WNL, Soft Renal/: Yes: WNL Kidneys: Yes: WNL Pelvis: Yes: Bladder Non Palpable Testicles: Yes: WNL Scrotum: Yes: WNL Penis: Yes: WNL Prostate Exam: Yes: Asymmetrical Musculoskeletal: Yes: WNL Extremities: Yes: WNL Labs: CBC, BMP 04/29/19 06:45 04/29/19 06:45 Imaging - Results Cat Scan: Report Reviewed Ultrasound: Report Reviewed MRI: Report Reviewed (complex left renal cyst) Assessment/Plan impression complex left renal cyst plan will follow-up as outpatient to monitor renal cyst
[2019-04-29] MEDS ORDERED: PANTOPRAZOLE SODIUM 40 MG VIAL IVPUSH ONE (17:33)
[2019-04-30] MEDS ORDERED: PIPERACILLIN/TAZOBACTAM 3.375 GM VIAL IVPB ONE ×2 (03:15→08:25)
[2019-04-30] MEDS ORDERED: DEXTROSE 5%-WATER - 50 ML IVPB ONE ×2 (03:16→08:25)
[2019-04-30] MEDS: PIPERACILLIN/TAZOB 3.375 GM 3.375 GM in DEXTROSE 5%-WATER - 50 ML IVPB SCH ×3 (03:19→19:00)
[2019-04-30] MEDS: LACTATED RINGERS SOLUTION 1,000 ML/1,000 ML INFUS.BAG IV SCH ×4 (03:39→22:22)
[2019-04-30 07:57] LABS: AMYLASE 171 U/L (25-115); LIPASE 600 U/L (73-393)
--- NOTE | 2019-04-30 12:32 | PN ---
Progress Note, Physician History of Present Illness: stable no complaints patient for surgery tomorrow - Current Medication List Current Medications: Active Medications Lactated Ringer's (Lactated Ringers Solution) 1,000 ml in 1,000 mls @ 125 mls/ hr IV ASDIR KENDAL Last Admin: 04/30/19 12:20 Dose: 125 mls/hr Piperacillin Sod/Tazobactam (Sod 3.375 gm/ Dextrose) 50 mls @ 100 mls/hr IVPB Q8H-IV KENDAL; Protocol Last Admin: 04/30/19 08:58 Dose: 100 mls/hr Ondansetron HCl (Zofran Injection) 4 mg IVPUSH Q6H PRN PRN Reason: NAUSEA AND/OR VOMITING - Objective Vital Signs: Vital Signs Temperature 98.6 F 04/30/19 08:57 Pulse Rate 84 04/30/19 08:57 Respiratory Rate 18 04/30/19 08:57 Blood Pressure 138/88 04/30/19 08:57 O2 Sat by Pulse Oximetry (%) 97 04/30/19 03:58 Constitutional: Yes: No Distress, Calm Cardiovascular: Yes: S1, S2 Respiratory: Yes: Regular, CTA Bilaterally Gastrointestinal: Yes: Normal Bowel Sounds, Soft Musculoskeletal: Yes: WNL Extremities: Yes: WNL Neurological: Yes: Alert, Oriented Psychiatric: Yes: Alert, Oriented Labs: CBC, BMP 04/29/19 06:45 04/29/19 06:45 INR, PTT INR 1.11 (0.83-1.09) H 04/27/19 07:10 Assessment/Plan 64 year-old male with no reported PMH. Admitted for acute cholecystitis. Acute cholecystitis Elevated bili Transaminitis cbd stone plan continue current mgmt continue abx awaiting for surgery rest as per the team
--- NOTE | 2019-04-30 13:59 | PN ---
Progress Note, Physician History of Present Illness: Pt seen and examined at bedside. He is awake and alert. He did get evaluated by urology. - Current Medication List Current Medications: Active Medications Lactated Ringer's (Lactated Ringers Solution) 1,000 ml in 1,000 mls @ 125 mls/ hr IV ASDIR KENDAL Last Admin: 04/30/19 12:20 Dose: 125 mls/hr Piperacillin Sod/Tazobactam (Sod 3.375 gm/ Dextrose) 50 mls @ 100 mls/hr IVPB Q8H-IV KENDAL; Protocol Last Admin: 04/30/19 08:58 Dose: 100 mls/hr Ondansetron HCl (Zofran Injection) 4 mg IVPUSH Q6H PRN PRN Reason: NAUSEA AND/OR VOMITING - Objective Vital Signs: Vital Signs Temperature 98.6 F 04/30/19 08:57 Pulse Rate 84 04/30/19 08:57 Respiratory Rate 18 04/30/19 09:00 Blood Pressure 138/88 04/30/19 08:57 O2 Sat by Pulse Oximetry (%) 93 L 04/30/19 09:00 Constitutional: Yes: Calm Eyes: Yes: Conjunctiva Clear HENT: Yes: Atraumatic Neck: Yes: Supple Cardiovascular: Yes: S1, S2 Respiratory: Yes: CTA Bilaterally Gastrointestinal: Yes: Soft Genitourinary: Yes: WNL Musculoskeletal: Yes: WNL Neurological: Yes: Oriented Psychiatric: Yes: Oriented Labs: CBC, BMP 04/29/19 06:45 04/29/19 06:45 INR, PTT INR 1.11 (0.83-1.09) H 04/27/19 07:10 Assessment/Plan Current Medications Generic Name Dose Route Start Last Admin Trade Name Freq PRN Reason Stop Dose Admin Lactated Ringer's 1,000 ml in 1,000 mls @ 125 mls/hr 04/29/19 07:00 04/30/19 12:20 Lactated Ringers Solution IV 125 mls/hr ASDIR KENDAL Administration Piperacillin Sod/Tazobactam 50 mls @ 100 mls/hr 04/28/19 18:00 04/30/19 08:58 Sod 3.375 gm/ Dextrose IVPB 100 mls/hr Q8H-IV KENDAL Administration Protocol Ondansetron HCl 4 mg 04/28/19 12:03 Zofran Injection IVPUSH Q6H PRN NAUSEA AND/OR VOMITING Impression 1. cholelithiasis 2. left renal lesion Plan - renal ultrasound reviewed and results discussed with pt - pt will follow with urology for his cysts - will repeat ua if he follows in the office - surgery follow up
--- NOTE | 2019-04-30 14:21 | PN ---
Progress Note, Physician Chief Complaint: Cholecystitis Abdominal Pain History of Present Illness: Previous notes and events reviewed awake and alert NAD denies chest pain or SOB denies abdominal pain, nausea, vomiting cleared by cardiology for cholecystectomy - Current Medication List Current Medications: Active Medications Lactated Ringer's (Lactated Ringers Solution) 1,000 ml in 1,000 mls @ 125 mls/ hr IV ASDIR KENDAL Last Admin: 04/30/19 12:20 Dose: 125 mls/hr Piperacillin Sod/Tazobactam (Sod 3.375 gm/ Dextrose) 50 mls @ 100 mls/hr IVPB Q8H-IV KENDAL; Protocol Last Admin: 04/30/19 08:58 Dose: 100 mls/hr Ondansetron HCl (Zofran Injection) 4 mg IVPUSH Q6H PRN PRN Reason: NAUSEA AND/OR VOMITING - Objective Vital Signs: Vital Signs Temperature 98.6 F 04/30/19 08:57 Pulse Rate 84 04/30/19 08:57 Respiratory Rate 18 04/30/19 09:00 Blood Pressure 138/88 04/30/19 08:57 O2 Sat by Pulse Oximetry (%) 93 L 04/30/19 09:00 Constitutional: Yes: No Distress, Calm Eyes: Yes: Conjunctiva Clear HENT: Yes: Atraumatic Cardiovascular: Yes: Regular Rate and Rhythm Respiratory: Yes: Regular, CTA Bilaterally Gastrointestinal: Yes: Normal Bowel Sounds, Soft, Abdomen, Obese Musculoskeletal: Yes: WNL Extremities: Yes: WNL Edema: No Neurological: Yes: Alert, Oriented Psychiatric: Yes: Alert, Oriented Labs: CBC, BMP 04/29/19 06:45 04/29/19 06:45 INR, PTT INR 1.11 (0.83-1.09) H 04/27/19 07:10 Microbiology 04/24/19 20:25 Urine - Urine Clean Catch Urine Culture - Final NO GROWTH OBTAINED Problem List - Problems (1) Choledocholithiasis with obstruction Assessment/Plan: -GI on board -Surgery on board -scheduled for lap cholecystectomy on 04/30/19 -NPO -Zosyn -IV hydration -Abdominal US shows partially distended gallbladder with multiple intraluminal stones, thickening of gallbladder wall and head of marketing adometry reported positive [place] sign, findings suggest acute cholecystitis -Abdominal MRI shows cholelithiasis with no evidence cholecystitis, questionable small nonobstructing mid to distal CBD stones but with no biliary ductal dilatation -ERCP done on 04/28/19 -LFTs: AST 39, ALT 152, Alk Phos 114 Code(s): K80.51 - CALCULUS OF BILE DUCT W/O CHOLANGITIS OR CHOLECYST W OBST Qualifiers: Cholecystitis presence: with cholecystitis Cholecystitis acuity: acute and chronic Qualified Code(s): K80.47 - Calculus of bile duct with acute and chronic cholecystitis with obstruction (2) Cholelithiasis with choledocholithiasis Assessment/Plan: -GI on board -Surgery on board -lap cholecystectomy on 04/30/19 -NPO -Zosyn -IV hydration -Abdominal US shows partially distended gallbladder with multiple intraluminal stones, thickening of gallbladder wall and head of marketing adometry reported positive [place] sign, findings suggest acute cholecystitis -Abdominal MRI shows cholelithiasis with no evidence cholecystitis, questionable small nonobstructing mid to distal CBD stones but with no biliary ductal dilatation -ERCP done Code(s): K80.70 - CALCULUS OF GB AND BILE DUCT W/O CHOLECYST W/O OBSTRUCTION (3) Renal cyst Assessment/Plan: -Abdominal MRI shows 2.7cm x 2.3cm left renal upper pole lesion as described may be cyst with hemorrhagic/proteinaceous contents -Renal US -renal consult Code(s): N28.1 - CYST OF KIDNEY, ACQUIRED Assessment/Plan see problem list dvt ppx
[2019-04-30] MEDS ORDERED: SODIUM CHLORIDE 1,000 ML IV SCH (19:15)
[2019-05-01] MEDS ORDERED: PIPERACILLIN/TAZOBACTAM 3.375 GM VIAL IVPB ONE ×3 (00:37→16:55)
[2019-05-01] MEDS ORDERED: DEXTROSE 5%-WATER - 50 ML IVPB ONE ×3 (00:38→16:55)
[2019-05-01] MEDS: PIPERACILLIN/TAZOB 3.375 GM 3.375 GM in DEXTROSE 5%-WATER - 50 ML IVPB SCH ×3 (02:42→17:25)
[2019-05-01] MEDS: LACTATED RINGERS SOLUTION 1,000 ML/1,000 ML INFUS.BAG IV SCH ×2 (06:40→15:00)
[2019-05-01 07:02] LABS: HEMATOCRIT 35.1 % (35.4-49); HEMOGLOBIN 11.6 GM/dL (11.7-16.9); MCH 28.3 pg (25.7-33.7); MCHC 33.2 g/dl (32.0-35.9); MEAN CELL VOLUME 85.3 fl (80-96); MEAN PLT VOLUME 8.6 fl (7.5-11.1); PLATELET COUNT 231 K/MM3 (134-434); RBC 4.11 M/mm3 (4.00-5.60); RDW 14.2 % (11.9-15.9); WHITE BLOOD COUNT 5.3 K/mm3 (4.0-10.0)
[2019-05-01 07:28] LABS: BILIRUBIN,DIRECT 0.3 mg/dL (0.0-0.2); BILIRUBIN,TOTAL 0.4 mg/dL (0.2-1); BLOOD UREA NITROGEN 6.3 mg/dL (7-18); CALCIUM 8.7 mg/dL (8.5-10.1); CREATININE 0.9 mg/dL (0.55-1.3); POTASSIUM 3.8 mmol/L (3.5-5.1)
--- NOTE | 2019-05-01 09:19 | PN ---
Progress Note, Physician History of Present Illness: stable no new issues - Current Medication List Current Medications: Active Medications Lactated Ringer's (Lactated Ringers Solution) 1,000 ml in 1,000 mls @ 125 mls/ hr IV ASDIR KENDAL Last Admin: 05/01/19 06:40 Dose: 125 mls/hr Piperacillin Sod/Tazobactam (Sod 3.375 gm/ Dextrose) 50 mls @ 100 mls/hr IVPB Q8H-IV KENDAL; Protocol Last Admin: 05/01/19 09:11 Dose: 100 mls/hr Ondansetron HCl (Zofran Injection) 4 mg IVPUSH Q6H PRN PRN Reason: NAUSEA AND/OR VOMITING - Objective Vital Signs: Vital Signs Temperature 98.7 F 05/01/19 05:50 Pulse Rate 71 05/01/19 05:50 Respiratory Rate 18 05/01/19 05:50 Blood Pressure 155/81 05/01/19 05:50 O2 Sat by Pulse Oximetry (%) 100 05/01/19 03:00 Constitutional: Yes: No Distress, Calm Cardiovascular: Yes: S1, S2 Respiratory: Yes: Regular, CTA Bilaterally Gastrointestinal: Yes: Normal Bowel Sounds, Soft Musculoskeletal: Yes: WNL Extremities: Yes: WNL Neurological: Yes: Alert, Oriented Labs: CBC, BMP 05/01/19 06:14 05/01/19 06:14 INR, PTT INR 1.11 (0.83-1.09) H 04/27/19 07:10 Assessment/Plan 64 year-old male with no reported PMH. Admitted for acute cholecystitis. Acute cholecystitis Elevated bili Transaminitis cbd stone plan continue current mgmt continue abx patient for surgery today rest as per the team
--- NOTE | 2019-05-01 10:41 | PN ---
Progress Note (short form) - Note Progress Note: Pt seen/examined at bedside, feels better, denies abdominal pain, n/v. Pt scheduled for cholecystectomy today On examination: Pt appears comfortable, sitting in chair Abd soft, nt, nd Labs reviewed. LFTs improving. CBC, BMP 05/01/19 06:14 05/01/19 06:14 Assessment/plan: 64yo male with choledocholithiasis s/p ERCP with stone extraction on 04/28. Clinically improved. Scheduled for cholecystectomy today Monitor LFTs to ensure normalization Further management per surgery
[2019-05-01] MEDS ORDERED: BENZOIN TINCTURE SWABSTICK TP ONE (11:50)
[2019-05-01] MEDS ORDERED: PROPOFOL 20 ML ONE ×2 (12:24)
[2019-05-01] MEDS ORDERED: MIDAZOLAM HCL 2 MG/2 ML SINGLE DOSE VIAL ONE (12:24)
[2019-05-01] MEDS ORDERED: SUCCINYLCHOLINE CHLORIDE 200 MG/10 ML SYRINGE ONE (12:24)
[2019-05-01] MEDS ORDERED: DEXAMETHASONE SOD PHOSPHATE 4 MG/1 ML VIAL ONE (13:05)
[2019-05-01] MEDS ORDERED: BUPIVACAINE HCL/PF 0.5% (5 MG/ML) 30 ML VIAL IJ ONE (13:18)
[2019-05-01] MEDS ORDERED: VECURONIUM BROMIDE 10 MG VIAL ONE (13:26)
[2019-05-01] MEDS ORDERED: ePHEDrine SULFATE 50 MG/1 ML AMPULE ONE (13:32)
[2019-05-01] MEDS ORDERED: NEOSTIGMINE METHYLSULFATE 0.5 MG/ML - 10 ML MDV ONE (13:46)
[2019-05-01] MEDS ORDERED: morphine SULFATE 4 MG/ML VIAL IVPUSH ONE (14:06)
[2019-05-01] MEDS ORDERED: ONDANSETRON 4 MG/2 ML VIAL IVPUSH PRN (14:07)
--- NOTE | 2019-05-01 14:13 | OP ---
Operative Note - Note: Operative Date: 05/01/19 Pre-Operative Diagnosis: gallstone pancreatitis Operation: laparoscopic cholecystectomy Findings: critical view identified. 5mm weck clips used on cystic structures Post-Operative Diagnosis: Same as Pre-op Surgeon: Jame Fulton Manager Outpatient: Joe Soriano Anesthesiologist/DENTAL DETAIL REPRESENTATIVE: Cristel Crum Anesthesia: General, Local (0.5% marcaine ) Specimens Removed: gallbladder Estimated Blood Loss (mls): 10 Fluid Volume Replaced (mls): 800 Operative Report Dictated: Yes
--- NOTE | 2019-05-01 15:15 | PN ---
Progress Note, Physician Chief Complaint: Cholecystitis Abdominal Pain History of Present Illness: Previous notes and events reviewed awake and alert NAD denies chest pain or SOB POD #0 lap cholecystectomy complain of abdominal pain to surgical site - Current Medication List Current Medications: Active Medications Lactated Ringer's (Lactated Ringers Solution) 1,000 ml in 1,000 mls @ 125 mls/ hr IV ASDIR KENDAL Piperacillin Sod/Tazobactam (Sod 3.375 gm/ Dextrose) 50 mls @ 100 mls/hr IVPB Q8H-IV KENDAL; Protocol Morphine Sulfate (Morphine Injection -) 4 mg IVPUSH NOW ONE Stop: 05/01/19 14:07 Ondansetron HCl (Zofran Injection) 4 mg IVPUSH Q6H PRN PRN Reason: NAUSEA - Objective Vital Signs: Vital Signs Temperature 98.8 F 05/01/19 11:00 Pulse Rate 78 05/01/19 11:00 Respiratory Rate 18 05/01/19 11:00 Blood Pressure 148/90 05/01/19 11:00 O2 Sat by Pulse Oximetry (%) 100 05/01/19 09:00 Constitutional: Yes: No Distress, Calm, Obese Eyes: Yes: Conjunctiva Clear HENT: Yes: Atraumatic Cardiovascular: Yes: Regular Rate and Rhythm Respiratory: Yes: Regular, CTA Bilaterally Gastrointestinal: Yes: Normal Bowel Sounds, Soft, Abdomen, Obese Musculoskeletal: Yes: WNL Extremities: Yes: WNL Edema: No Wound/Incision: Yes: Dressing Dry and Intact Neurological: Yes: Alert, Oriented Psychiatric: Yes: Alert, Oriented Labs: CBC, BMP 05/01/19 06:14 05/01/19 06:14 INR, PTT INR 1.11 (0.83-1.09) H 04/27/19 07:10 Microbiology 04/24/19 20:25 Urine - Urine Clean Catch Urine Culture - Final NO GROWTH OBTAINED Problem List - Problems (1) Choledocholithiasis with obstruction Assessment/Plan: -GI on board -Surgery on board -NPO -Zosyn -IV hydration -Abdominal US shows partially distended gallbladder with multiple intraluminal stones, thickening of gallbladder wall and inventory technician reported positive Hamlet sign, findings suggest acute cholecystitis -Abdominal MRI shows cholelithiasis with no evidence cholecystitis, questionable small nonobstructing mid to distal CBD stones but with no biliary ductal dilatation -ERCP done on 04/28/19 Code(s): K80.51 - CALCULUS OF BILE DUCT W/O CHOLANGITIS OR CHOLECYST W OBST Qualifiers: Cholecystitis presence: with cholecystitis Cholecystitis acuity: acute and chronic Qualified Code(s): K80.47 - Calculus of bile duct with acute and chronic cholecystitis with obstruction (2) Cholelithiasis with choledocholithiasis Assessment/Plan: -GI on board -Surgery on board -POD #0 lap cholecystectomy -NPO -Zosyn -IV hydration -Abdominal US shows partially distended gallbladder with multiple intraluminal stones, thickening of gallbladder wall and inventory technician reported positive Hamlet sign, findings suggest acute cholecystitis -Abdominal MRI shows cholelithiasis with no evidence cholecystitis, questionable small nonobstructing mid to distal CBD stones but with no biliary ductal dilatation -ERCP done Code(s): K80.70 - CALCULUS OF GB AND BILE DUCT W/O CHOLECYST W/O OBSTRUCTION (3) Renal cyst Assessment/Plan: -Abdominal MRI shows 2.7cm x 2.3cm left renal upper pole lesion as described may be cyst with hemorrhagic/proteinaceous contents -Renal US shows bilateral renal cyst with questionable complex cyst in left renal upper pole 2.4 x 1.9cm -renal consult Code(s): N28.1 - CYST OF KIDNEY, ACQUIRED Assessment/Plan see problem list dvt ppx
--- NOTE | 2019-05-01 18:46 | OP ---
DATE OF OPERATION: 05/01/2019 PREOPERATIVE DIAGNOSIS: Gallstone pancreatitis and umbilical hernia. POSTOPERATIVE DIAGNOSIS: Gallstone pancreatitis and umbilical hernia. PROCEDURE: Laparoscopic cholecystectomy and primary umbilical hernia repair. ATTENDING SURGEON: Jame Fulton M.D. [place] ADMINISTRATOR: Joe Soriano M.D. ANESTHESIOLOGIST: Cristel Montes CRNA ANESTHESIA: General with local. Local consisted of 0.5% Marcaine a total of 20 mL. SPECIMEN: Gallbladder and hernia sac ESTIMATED BLOOD LOSS: 10 mL INTRAVENOUS FLUID: 800 mL crystalloid FINDINGS: Patient had critical view identified, 5-mm Weck clips used on cystic duct structures. INDICATION: The patient is a 64-year-old male presenting with gallstone pancreatitis. Had an ERCP the previous weekend. He was counseled regarding risks, benefits, and alternatives of surgical cholecystectomy, signed informed consent, after having his questions answered satisfactorily, and he was taken for procedure. DESCRIPTION OF PROCEDURE: Patient is brought to the operating room, placed in the supine position on the operating table. The lower extremities had SCDs placed to compression. He was induced under general anesthesia, endotracheally intubated. The left arm was at 90 degrees perpendicular to the body's midline axis. The right arm was tucked. Anterior abdominal wall was clipped, prepped, and draped in standard surgical fashion, identifying the umbilical hernia as well. After a formal timeout identifying the operative site, and with all parties in agreement, began first with a supraumbilical approach for Christianson entrance into the abdomen. It was incised with a 15-blade scalpel, deepening and widening down through subcutaneous tissue. Care was taken to dissect down to the midline fascia at the level of the umbilical hernia. The umbilical hernia was then dissected circumferentially with a clamp and then the hernia sac was truncated at its base near the fascia circumferentially. It was sent for final pathologic diagnosis. The Satnam was then used to grasp the midline fascia and elevate it. A [id number] was laid in with 0 Vicryl, at which point the Christianson 12-mm port was installed in the abdomen, and pneumoperitoneum was established to 15 mmHg. We began first then with inspection of the site. The gallbladder appeared distended, only mildly, and was able to be easily identified. The patient was placed into a reverse Trendelenburg. A subxiphoid port as well as 2 right lateral abdominal ports were placed. The gallbladder was grasped and retracted towards the patient's left shoulder, and then the infundibulum was grasped and retracted laterally. At this point, we were able to dissect the cystic structures, developing planes posterior to the cystic duct and the cystic artery. The critical view of safety was identified, at which point the structures were then taken with 5-mm Weck clips for the cystic artery and cystic duct. They were then transected with the Endoshears, and gallbladder was elevated from the hepatic bed on segments 4 and 5 with Bovie cautery. Once complete, it was retrieved from the abdomen using EndoCatch bag from the umbilical port after re-siting the cameras to the subxiphoid position. We proceeded then with hemostasis using Bovie cautery along the liver bed. Once complete, the abdomen was suctioned, irrigated at the gallbladder bed, and the trocar was removed under direct visualization and relieved pneumoperitoneum. The fascia was then closed at the port with the 0 Vicryl which had been previously the hernia defect. The patient then had the skin cleaned and closed with 4-0 Vicryl interrupted fashion in a running subcuticular with 4-0 Vicryl. The patient was awoken from general anesthesia having tolerated procedure well after sterile dressings were placed. He returned to recovery in stable condition. He was extubated in the operating room. All counts were correct prior to closure of the abdomen. MD VIJAYA [id number]
[2019-05-02] MEDS ORDERED: PIPERACILLIN/TAZOBACTAM 3.375 GM VIAL IVPB ONE ×2 (00:45→07:53)
[2019-05-02] MEDS ORDERED: DEXTROSE 5%-WATER - 50 ML IVPB ONE ×2 (00:46→07:53)
[2019-05-02] MEDS: PIPERACILLIN/TAZOB 3.375 GM 3.375 GM in DEXTROSE 5%-WATER - 50 ML IVPB SCH ×2 (01:14→10:04)
[2019-05-02] MEDS: LACTATED RINGERS SOLUTION 1,000 ML/1,000 ML INFUS.BAG IV SCH (03:38)
[2019-05-02] MEDS ORDERED: ACETAMINOPHEN 1000 MG/100 ML VIAL (NON FORMULARY) IVPB PRN (09:04)
[2019-05-02 10:16] VITALS: BMI 36.9
--- NOTE | 2019-05-02 13:41 | PN ---
Progress Note, Physician Chief Complaint: Cholecystitis Abdominal Pain History of Present Illness: Previous notes and events reviewed awake and alert NAD denies chest pain or SOB POD #1 lap cholecystectomy complain of abdominal pain to surgical site--given tylenol IVPB with good relief passing flatus and having BM - Current Medication List Current Medications: Active Medications Acetaminophen (Ofirmev Injection -) 1,000 mg IVPB Q6H PRN PRN Reason: PAIN LEVEL 1-5 Last Admin: 05/02/19 10:04 Dose: 1,000 mg Fentanyl (Sublimaze Injection -) 50 mcg IVPUSH [id number] PRN PRN Reason: PAIN-PACU ORDER X 4 DOSES ONLY Last Admin: 05/01/19 15:15 Dose: 50 mcg Lactated Ringer's (Lactated Ringers Solution) 1,000 ml in 1,000 mls @ 125 mls/ hr IV ASDIR KENDAL Last Admin: 05/02/19 03:38 Dose: 125 mls/hr Piperacillin Sod/Tazobactam (Sod 3.375 gm/ Dextrose) 50 mls @ 100 mls/hr IVPB Q8H-IV KENDAL; Protocol Last Admin: 05/02/19 10:04 Dose: 100 mls/hr Ondansetron HCl (Zofran Injection) 4 mg IVPUSH Q6H PRN PRN Reason: NAUSEA - Objective Vital Signs: Vital Signs Temperature 97.7 F 05/02/19 10:59 Pulse Rate 84 05/02/19 10:59 Respiratory Rate 20 05/02/19 10:59 Blood Pressure 150/87 05/02/19 10:59 O2 Sat by Pulse Oximetry (%) 100 05/02/19 09:00 Constitutional: Yes: No Distress, Calm Eyes: Yes: Conjunctiva Clear HENT: Yes: Atraumatic Cardiovascular: Yes: Regular Rate and Rhythm Respiratory: Yes: Regular, CTA Bilaterally, On Nasal O2 Gastrointestinal: Yes: Normal Bowel Sounds, Soft, Abdomen, Obese Musculoskeletal: Yes: Muscle Weakness Extremities: Yes: WNL Edema: No Wound/Incision: Yes: Dressing Dry and Intact Neurological: Yes: Alert, Oriented Psychiatric: Yes: Alert, Oriented Labs: CBC, BMP 05/01/19 06:14 05/01/19 06:14 INR, PTT INR 1.11 (0.83-1.09) H 04/27/19 07:10 Problem List - Problems (1) Choledocholithiasis with obstruction Assessment/Plan: -GI on board -Surgery on board -NPO -Zosyn -IV hydration -Abdominal US shows partially distended gallbladder with multiple intraluminal stones, thickening of gallbladder wall and community relations advisor reported positive [place] sign, findings suggest acute cholecystitis -Abdominal MRI shows cholelithiasis with no evidence cholecystitis, questionable small nonobstructing mid to distal CBD stones but with no biliary ductal dilatation -ERCP done on 04/28/19 Code(s): K80.51 - CALCULUS OF BILE DUCT W/O CHOLANGITIS OR CHOLECYST W OBST Qualifiers: Cholecystitis presence: with cholecystitis Cholecystitis acuity: acute and chronic Qualified Code(s): K80.47 - Calculus of bile duct with acute and chronic cholecystitis with obstruction (2) Cholelithiasis with choledocholithiasis Assessment/Plan: -GI on board -Surgery on board -POD #0 lap cholecystectomy -NPO -Zosyn -IV hydration -Abdominal US shows partially distended gallbladder with multiple intraluminal stones, thickening of gallbladder wall and community relations advisor reported positive [place]ouds sign, findings suggest acute cholecystitis -Abdominal MRI shows cholelithiasis with no evidence cholecystitis, questionable small nonobstructing mid to distal CBD stones but with no biliary ductal dilatation -ERCP done Code(s): K80.70 - CALCULUS OF GB AND BILE DUCT W/O CHOLECYST W/O OBSTRUCTION (3) Renal cyst Code(s): N28.1 - CYST OF KIDNEY, ACQUIRED
[2019-05-02 13:57] VITALS: BP 130/74; PULSE 65; TEMP 98
--- NOTE | 2019-05-02 14:35 | PN ---
Progress Note, Physician History of Present Illness: patient stable no new issues doing well post op - Current Medication List Current Medications: Active Medications Acetaminophen (Ofirmev Injection -) 1,000 mg IVPB Q6H PRN PRN Reason: PAIN LEVEL 1-5 Last Admin: 05/02/19 10:04 Dose: 1,000 mg Fentanyl (Sublimaze Injection -) 50 mcg IVPUSH [id number] PRN PRN Reason: PAIN-PACU ORDER X 4 DOSES ONLY Last Admin: 05/01/19 15:15 Dose: 50 mcg Lactated Ringer's (Lactated Ringers Solution) 1,000 ml in 1,000 mls @ 125 mls/ hr IV ASDIR KENDAL Last Admin: 05/02/19 03:38 Dose: 125 mls/hr Piperacillin Sod/Tazobactam (Sod 3.375 gm/ Dextrose) 50 mls @ 100 mls/hr IVPB Q8H-IV KENDAL; Protocol Last Admin: 05/02/19 10:04 Dose: 100 mls/hr Ondansetron HCl (Zofran Injection) 4 mg IVPUSH Q6H PRN PRN Reason: NAUSEA - Objective Vital Signs: Vital Signs Temperature 98.0 F 05/02/19 13:56 Pulse Rate 65 05/02/19 13:56 Respiratory Rate 20 05/02/19 10:59 Blood Pressure 130/74 05/02/19 13:56 O2 Sat by Pulse Oximetry (%) 100 05/02/19 09:00 Constitutional: Yes: No Distress, Calm Cardiovascular: Yes: Regular Rate and Rhythm Respiratory: Yes: Regular, CTA Bilaterally Gastrointestinal: Yes: Normal Bowel Sounds, Soft Musculoskeletal: Yes: WNL Extremities: Yes: WNL Neurological: Yes: Alert, Oriented Psychiatric: Yes: Alert, Oriented Labs: CBC, BMP 05/01/19 06:14 05/01/19 06:14 INR, PTT INR 1.11 (0.83-1.09) H 04/27/19 07:10 Assessment/Plan 64 year-old male with no reported PMH. Admitted for acute cholecystitis. Acute cholecystitis Elevated bili Transaminitis cbd stone plan continue current mgmt patient can be changed to oral abx augmentin for 7 days
--- NOTE | 2019-05-02 14:47 | DS ---
Physical Examination Vital Signs: Vital Signs Temperature 98.0 F 05/02/19 13:56 Pulse Rate 65 05/02/19 13:56 Respiratory Rate 20 05/02/19 10:59 Blood Pressure 130/74 05/02/19 13:56 O2 Sat by Pulse Oximetry (%) 100 05/02/19 09:00 Constitutional: Yes: No Distress, Calm Eyes: Yes: Conjunctiva Clear HENT: Yes: Atraumatic Cardiovascular: Yes: Regular Rate and Rhythm Respiratory: Yes: Regular, CTA Bilaterally Gastrointestinal: Yes: Normal Bowel Sounds, Soft, Abdomen, Obese Musculoskeletal: Yes: WNL Extremities: Yes: WNL Edema: No Wound/Incision: Yes: Dressing Dry and Intact Neurological: Yes: Alert, Oriented Psychiatric: Yes: Alert, Oriented Labs: CBC, BMP 05/01/19 06:14 05/01/19 06:14 Discharge Summary Reason For Visit: CHOLECYSTITIS Current Active Problems Abdominal pain (Acute) Abdominal pain in male (Acute) Choledocholithiasis with obstruction (Acute) Cholelithiasis with choledocholithiasis (Acute) Constipation (Acute) Jaundice (Acute) Obesity (BMI 30-39.9) (Acute) RUQ abdominal pain (Acute) Renal cyst (Acute) Hospital Course: Patient is a 64 y/o male that presented to ER with complaints of constipation and abdominal pain for 2 days. Pain located to mid abdomen accompanied with nausea. In ER noted with elevated LFTs. GI on board -Surgery on board -POD #1 lap cholecystectomy -Abdominal US shows partially distended gallbladder with multiple intraluminal stones, thickening of gallbladder wall and chicle grinder feeder reported positive Eleanor sign, findings suggest acute cholecystitis -Abdominal MRI shows cholelithiasis with no evidence cholecystitis, questionable small nonobstructing mid to distal CBD stones but with no biliary ductal dilatation -ERCP done Laboratory Tests 04/24/19 04/24/19 04/24/19 18:41 18:41 18:41 WBC 4.5 RBC 5.17 Hgb 14.4 Hct 44.5 MCV 86.0 MCH 27.9 MCHC 32.4 RDW 13.9 Plt Count 246 MPV 8.6 Absolute Neuts (auto) 2.3 Neutrophils % 50.5 Lymphocytes % 35.1 Monocytes % 11.6 H Eosinophils % 2.0 Basophils % 0.8 Nucleated RBC % PT with INR INR Sodium 139 Potassium 3.5 Chloride 102 Carbon Dioxide 30 Anion Gap 7 L BUN 7.0 Creatinine 0.9 Est GFR (CKD-EPI)AfAm 102.79 Est GFR (CKD-EPI)NonAf 88.69 Random Glucose 126 H Calcium 9.1 Magnesium Total Bilirubin 3.7 H Direct Bilirubin AST 505 H ALT 600 H Alkaline Phosphatase 157 H C-Reactive Protein Total Protein 8.6 H Albumin 4.2 Total Amylase Lipase 258 Urine Color Urine Appearance Urine pH Ur Specific [place] Urine Protein Urine Glucose (UA) Urine Ketones Urine Blood Urine Nitrite Urine Bilirubin Urine Urobilinogen Ur Leukocyte Esterase Urine WBC (Auto) Urine RBC (Auto) Hep A IgM Ab Confirm Hep Bs Antigen Hep B Core IgM Ab Hepatitis C Ab (EIA) 04/24/19 04/24/19 04/25/19 20:10 20:25 07:15 WBC 4.7 RBC 4.53 Hgb 12.8 Hct 39.1 MCV 86.2 MCH 28.3 MCHC 32.8 RDW 13.9 Plt Count 208 MPV 9.1 Absolute Neuts (auto) 2.2 Neutrophils % 46.1 Lymphocytes % 38.9 Monocytes % 12.1 H Eosinophils % 2.5 Basophils % 0.4 Nucleated RBC % PT with INR INR Sodium Potassium Chloride Carbon Dioxide Anion Gap BUN Creatinine Est GFR (CKD-EPI)AfAm Est GFR (CKD-EPI)NonAf Random Glucose Calcium Magnesium Total Bilirubin Direct Bilirubin AST ALT Alkaline Phosphatase C-Reactive Protein Total Protein Albumin Total Amylase Lipase Urine Color Dk yellow Urine Appearance Sl cloudy Urine pH 5.5 Ur Specific [place] 1.015 Urine Protein Trace Urine Glucose (UA) Negative Urine Ketones Negative Urine Blood Trace-intact Urine Nitrite Negative Urine Bilirubin 3+ Urine Urobilinogen 1.0 Ur Leukocyte Esterase Negative Urine WBC (Auto) 0-2 Urine RBC (Auto) 2-5 Hep A IgM Ab Confirm Negative Hep Bs Antigen Negative Hep B Core IgM Ab Negative Hepatitis C Ab (EIA) 0.2 04/25/19 04/26/19 04/26/19 07:15 07:06 07:06 WBC 6.8 RBC 4.38 Hgb 12.6 Hct 37.7 MCV 86.1 MCH 28.7 MCHC 33.4 RDW 13.4 Plt Count 197 MPV 9.2 Absolute Neuts (auto) 4.0 Neutrophils % 57.9 D Lymphocytes % 29.1 D Monocytes % 10.7 H Eosinophils % 1.9 Basophils % 0.4 Nucleated RBC % PT with INR INR Sodium 139 134 L Potassium 4.0 3.5 Chloride 106 101 Carbon Dioxide 27 28 Anion Gap 6 L 5 L BUN 5.0 L 6.0 L Creatinine 0.9 0.9 Est GFR (CKD-EPI)AfAm 102.79 102.79 Est GFR (CKD-EPI)NonAf 88.69 88.69 Random Glucose 140 H 120 H Calcium 8.6 8.3 L Magnesium 1.6 L Total Bilirubin 2.3 H 1.1 H Direct Bilirubin 0.4 H AST 324 H 126 H ALT 500 H 303 H Alkaline Phosphatase 138 H D 121 H D C-Reactive Protein Total Protein 7.3 6.8 Albumin 3.5 3.3 L Total Amylase Lipase Urine Color Urine Appearance Urine pH Ur Specific [place] Urine Protein Urine Glucose (UA) Urine Ketones Urine Blood Urine Nitrite Urine Bilirubin Urine Urobilinogen Ur Leukocyte Esterase Urine WBC (Auto) Urine RBC (Auto) Hep A IgM Ab Confirm Hep Bs Antigen Hep B Core IgM Ab Hepatitis C Ab (EIA) 04/27/19 04/27/19 04/27/19 07:10 07:10 07:10 WBC 7.1 RBC 4.71 Hgb 13.4 Hct 40.0 MCV 84.9 MCH 28.4 MCHC 33.5 RDW 14.5 Plt Count 214 MPV 8.9 Absolute Neuts (auto) 3.8 Neutrophils % 52.8 Lymphocytes % 34.0 Monocytes % 10.5 H Eosinophils % 2.0 Basophils % 0.7 Nucleated RBC % 0 PT with INR 13.10 H INR 1.11 H Sodium 140 Potassium 3.9 Chloride 103 Carbon Dioxide 31 Anion Gap 6 L BUN 6.6 L Creatinine 1.0 Est GFR (CKD-EPI)AfAm 90.50 Est GFR (CKD-EPI)NonAf 78.08 Random Glucose 92 Calcium 9.1 Magnesium Total Bilirubin 1.0 Direct Bilirubin 0.5 H AST 88 H ALT 284 H Alkaline Phosphatase 154 H C-Reactive Protein 4.3 H Total Protein 8.4 H Albumin 3.6 Total Amylase 55 Lipase 173 Urine Color Urine Appearance Urine pH Ur Specific [place] Urine Protein Urine Glucose (UA) Urine Ketones Urine Blood Urine Nitrite Urine Bilirubin Urine Urobilinogen Ur Leukocyte Esterase Urine WBC (Auto) Urine RBC (Auto) Hep A IgM Ab Confirm Hep Bs Antigen Hep B Core IgM Ab Hepatitis C Ab (EIA) 04/28/19 04/28/19 04/29/19 07:12 07:12 06:45 WBC 6.0 RBC 4.57 Hgb 13.0 Hct 39.1 MCV 85.5 MCH 28.4 MCHC 33.2 RDW 14.4 Plt Count 217 MPV 8.7 Absolute Neuts (auto) 3.3 Neutrophils % 54.8 Lymphocytes % 32.6 Monocytes % 11.5 H Eosinophils % 0.6 Basophils % 0.5 Nucleated RBC % 0 PT with INR INR Sodium 139 140 Potassium 3.8 3.7 Chloride 104 104 Carbon Dioxide 30 31 Anion Gap 6 L 5 L BUN 10.3 8.4 Creatinine 1.0 1.0 Est GFR (CKD-EPI)AfAm 90.50 90.50 Est GFR (CKD-EPI)NonAf 78.08 78.08 Random Glucose 110 H 122 H Calcium 9.0 8.7 Magnesium Total Bilirubin 0.8 0.7 Direct Bilirubin 0.4 H AST 53 H 39 H ALT 206 H 152 H Alkaline Phosphatase 133 H 114 C-Reactive Protein 6.2 H 3.8 H Total Protein 8.2 7.7 Albumin 3.4 3.4 Total Amylase 56 > 1300 H Lipase 155 > 71224 H Urine Color Urine Appearance Urine pH Ur Specific [place] Urine Protein Urine Glucose (UA) Urine Ketones Urine Blood Urine Nitrite Urine Bilirubin Urine Urobilinogen Ur Leukocyte Esterase Urine WBC (Auto) Urine RBC (Auto) Hep A IgM Ab Confirm Hep Bs Antigen Hep B Core IgM Ab Hepatitis C Ab (EIA) 04/29/19 04/30/19 05/01/19 06:45 07:05 06:14 WBC 7.3 RBC 4.45 Hgb 12.7 Hct 38.6 MCV 86.7 MCH 28.5 MCHC 32.9 RDW 14.2 Plt Count 212 MPV 9.1 Absolute Neuts (auto) 4.3 Neutrophils % 58.0 Lymphocytes % 27.2 Monocytes % 11.6 H Eosinophils % 2.7 D Basophils % 0.5 Nucleated RBC % 0 PT with INR INR Sodium 141 Potassium 3.8 Chloride 105 Carbon Dioxide 33 H Anion Gap 3 L BUN 6.3 L Creatinine 0.9 Est GFR (CKD-EPI)AfAm 102.79 Est GFR (CKD-EPI)NonAf 88.69 Random Glucose 109 H Calcium 8.7 Magnesium Total Bilirubin 0.4 Direct Bilirubin 0.3 H AST 20 ALT 86 H Alkaline Phosphatase 88 C-Reactive Protein Total Protein 7.0 Albumin 3.0 L Total Amylase 171 H Lipase 600 H Urine Color Urine Appearance Urine pH Ur Specific [place] Urine Protein Urine Glucose (UA) Urine Ketones Urine Blood Urine Nitrite Urine Bilirubin Urine Urobilinogen Ur Leukocyte Esterase Urine WBC (Auto) Urine RBC (Auto) Hep A IgM Ab Confirm Hep Bs Antigen Hep B Core IgM Ab Hepatitis C Ab (EIA) 05/01/19 06:14 WBC 5.3 RBC 4.11 Hgb 11.6 L Hct 35.1 L MCV 85.3 MCH 28.3 MCHC 33.2 RDW 14.2 Plt Count 231 MPV 8.6 Absolute Neuts (auto) Neutrophils % Lymphocytes % Monocytes % Eosinophils % Basophils % Nucleated RBC % PT with INR INR Sodium Potassium Chloride Carbon Dioxide Anion Gap BUN Creatinine Est GFR (CKD-EPI)AfAm Est GFR (CKD-EPI)NonAf Random Glucose Calcium Magnesium Total Bilirubin Direct Bilirubin AST ALT Alkaline Phosphatase C-Reactive Protein Total Protein Albumin Total Amylase Lipase Urine Color Urine Appearance Urine pH Ur Specific [place] Urine Protein Urine Glucose (UA) Urine Ketones Urine Blood Urine Nitrite Urine Bilirubin Urine Urobilinogen Ur Leukocyte Esterase Urine WBC (Auto) Urine RBC (Auto) Hep A IgM Ab Confirm Hep Bs Antigen Hep B Core IgM Ab Hepatitis C Ab (EIA) Active Medications Generic Name Dose Route Start Last Admin Trade Name Mirela PRN Reason Stop Dose Admin Acetaminophen 1,000 mg 05/02/19 09:04 05/02/19 10:04 Ofirmev Injection - IVPB 1,000 mg Q6H PRN Administration PAIN LEVEL 1-5 Amoxicillin/Clavulanate Potassium 1 tab 05/02/19 17:30 Augmentin - 875mg Tablet PO 05/09/19 17:29 BID@0800,1730 KENDAL Fentanyl 50 mcg 05/01/19 15:16 05/01/19 15:15 Sublimaze Injection - IVPUSH 50 mcg [id number] PRN Administration PAIN-PACU ORDER X 4 DOSES ONLY Lactated Ringer's 1,000 ml in 1,000 mls @ 125 mls/hr 05/01/19 15:10 05/02/19 03:38 Lactated Ringers Solution IV 125 mls/hr ASDIR KENDAL Administration Piperacillin Sod/Tazobactam 50 mls @ 100 mls/hr 05/01/19 18:00 05/02/19 10:04 Sod 3.375 gm/ Dextrose IVPB 100 mls/hr Q8H-IV KENDAL Administration Protocol Ondansetron HCl 4 mg 05/01/19 14:07 Zofran Injection IVPUSH Q6H PRN NAUSEA Microbiology 04/24/19 20:25 Urine - Urine Clean Catch Urine Culture - Final NO GROWTH OBTAINED Condition: Stable - Instructions Diet, Activity, Other Instructions: Postoperative instructions: You had a laparoscopic cholecystectomy on DATE by Dr. Jame Fulton of [facility]. Activity: Resume your usual activities gradually, but no heavy exertion or lifting more than 10-15 pounds for 1 month. Remove dressings 48 hours after surgery; sticky tapes underneath will fall off by themselves. You may shower daily starting then, just pat the incision areas dry. No bath or swimming until skin incisions have healed. Eat lightly at first, but advance to your usual diet as tolerated. Pain: For pain, you may use and alternate Tylenol (acetaminophen) 1-2 pills and/ or ibuprofen 200 mg (1-3 pills) every 6 hours each as needed; this means that you can take one OR the other at 3-hour intervals. If you are prescribed a Tylenol/narcotic combination for severe pain, use it instead of plain Tylenol as needed and switch back when your pain starts decreasing. Do not take more than 4000mg of acetaminophen in a day. Take medications as prescribed or indicated on the labeling. Follow-up: Call Dr. Fulton office at [phone] to make your postop appointment (Monday in approximately 2 weeks after surgery). Clinic is held in the [facility] on the first floor of [facility]. Call the office if you have: * increasing pain not responsive to pain medication * fever of 101F or higher * vomiting * unusual or increasing bleeding or drainage from wounds * increasing redness or swelling at wound sites * inability to urinate Also, see your primary medical doctor within 1-2 weeks Take Augmentin 875mg twice daily for 7 days follow up with PMD in 1 week Follow up with Surgery Dr Fulton return to ER if develop fever, severe pain, respiratory distress, chest pain, abdominal pain. Referrals: Jame Fulton MD [Staff Physician] - Leon Lawton MD [Staff Physician] - Jenifer Trevino MD [Staff Physician] - Disposition: HOME - Home Medications Comprehensive Discharge Medication List: Ambulatory Orders Amox-Tr/K Cl [Augmentin 875-125mg Tablet -] 1 tab PO BID #14 tablet 05/02/19 Amox-Tr/K Cl [Augmentin 875-125mg Tablet -] 1 tab PO BID@0800,1730 7 Days tablet 05/02/19
[2019-05-02] MEDS ORDERED: AMOX TR/POT CLAV 875MG/125MG TABLETS (FP) PO SCH (17:30)
--- NOTE | 2019-05-07 15:23 | PATH ---
Surgical Pathology Report Patient Name: ABI MOORE [place]. Rec. #: [id number] /Age/Gender: 1955 (Age: 64) / M Account: [id number] Location: [address] [place] [address]/[facility] Taken: 05/01/2019 Received: 05/02/2019 Reported: 05/07/2019 Physicians: Charo Martinez M.D. Specimen(s) Received A: GALLBLADDER B: HERNIA SAC Clinical History Cholecystitis Final Diagnosis A. GALLBLADDER, LAPAROSCOPIC CHOLECYSTECTOMY: CHRONIC CHOLECYSTITIS WITH CHOLELITHIASIS. B. HERNIA SAC, UMBILICAL HERNIA REPAIR: HERNIA SAC. Electronically Signed Aurea Garcia M.D. Gross Description A. Received in formalin, labeled "gallbladder," is an 8.5 x 3.0 x 2.3 cm. gallbladder with a 0.2 cm. in length portion of cystic duct attached. The outer surface is mendieta-graham and varies from smooth to shaggy. The lumen contains green, tenacious bile as well as abundant yellow, irregular to fragmented choleliths ranging from 0.1-2.2 cm in greatest dimension. The mucosa is green with focal erosions. The wall of the gallbladder measures 0.1 cm. in thickness. Drilling Machine Operator sections are submitted in one cassette. B. Received in formalin labeled "hernia sac," is a 1.8 x 1.6 x 0.8 cm mendieta portion of fibromembranous tissue with attached fat, consistent with a hernia sac. Drilling Machine Operator sections are submitted in one cassette. 05/03/2019 [facility]05/03/2019
== END 2019-05-02 17:04 | disposition home or self-care (01) | DRG 417 ==
LOC: FER 17:57 → FM/S 04-25 02:01 → J6S 04-26 14:23
PROVIDERS: ADMIT Internal Medicine; ATTEND Family Medicine
PROC: 0WQF0ZZ Repair Abdominal Wall, Open Approach (ICD-10-PCS; 2019-04-28)
PROC: 0F798ZZ Dilation of Common Bile Duct, Via Natural or Artificial Opening Endoscopic (ICD-10-PCS; 2019-04-28)
PROC: 0FC98ZZ Extirpation of Matter from Common Bile Duct, Via Natural or Artificial Opening Endoscopic (ICD-10-PCS; 2019-04-28)
PROC: 0FT44ZZ Resection of Gallbladder, Percutaneous Endoscopic Approach (ICD-10-PCS; principal; 2019-04-28 10:00)
DX: K80.63 Calculus of gallbladder and bile duct with acute cholecystitis with obstruction (principal); K85.10 Biliary acute pancreatitis without necrosis or infection; R17 Unspecified jaundice; K91.89 Other postprocedural complications and disorders of digestive system; K59.00 Constipation, unspecified; E66.8 Other obesity; Z68.37 Body mass index [BMI] 37.0-37.9, adult; N28.1 Cyst of kidney, acquired; R10.11 Right upper quadrant pain; K42.9 Umbilical hernia without obstruction or gangrene; Y83.8 Other surgical procedures as the cause of abnormal reaction of the patient, or of later complication, without mention of misadventure at the time of the procedure
CPT/HCPCS: 36415; 71045-TC-FY; 74176-TC; 74181-TC; 76000-TC-FY; 76705-TC; 76775-TC; 80048; 80053; 80074; 80076; 81003; 82150; 82248; 83690; 83735; 85025; 85027; 85610; 86140; 87086; 88302-TC; 88304-TC; 93005; 93010; 94760; 99284-25; J0131; J7030

== ENCOUNTER 2019-05-06 12:23 | Emergency (ER) | payer OTHER ==
--- NOTE | 2019-05-06 12:27 | PDOC ---
Rapid Medical Evaluation Time Seen by Provider: 05/06/19 12:25 Medical Evaluation: Allergies Allergy/AdvReac Type Severity Reaction Status Date / Time No Known Allergies Allergy Verified 04/24/19 17:58 05/06/19 12:25 CC: bleeding from trochar wounds PE: deferred Orders: nothing Patient will proceed to ED for continued evaluation. Discharge Disposition - Diagnosis Post-operative complication - Referrals - Patient Instructions - Post Discharge Activity
[2019-05-06 12:30] VITALS: BP 144/82; PULSE 106; TEMP 98; BMI 36.8
--- NOTE | 2019-05-06 12:47 | PDOC ---
*Physical Exam - Vital Signs Last Vital Signs Temp Pulse Resp BP Pulse Ox 98.0 F 106 H 16 144/82 97 05/06/19 12:25 05/06/19 12:25 05/06/19 12:25 05/06/19 12:25 05/06/19 12:25 Medical Decision Making - Medical Decision Making 05/06/19 12:46 Pt seen by Midlevel Provider under my direct supervision Pt interviewed and examined Ancillary studies reviewed I agree with plan as outlined by Midlevel Provider *DC/Admit/Observation/Transfer Diagnosis at time of Disposition: Post-operative complication - Referrals - Patient Instructions - Post Discharge Activity
--- NOTE | 2019-05-06 13:02 | PDOC ---
History of Present Illness - General Chief Complaint: Wound Stated Complaint: WOUND Time Seen by Provider: 05/06/19 12:25 History Source: Patient Exam Limitations: No Limitations - History of Present Illness Initial Comments: 05/06/19 12:57 64 y/o male presents to ED for evaluation of his surgical wound. Patient denies fever, chills, redness or drainage. Patient states had a cholecystectomy done on Monday performed by Dr. Fulton which went uneventfully. Patient states no history of immunosuppression including diabetes. Patient does not have an appointment on next week and was concerned with removing the gauze. Timing/Duration: other Associated Symptoms: reports: denies symptoms Past History - Travel Traveled outside of the country in the last 30 days: No Close contact w/someone who was outside of country & ill: No - Past Medical History Allergies/Adverse Reactions: Allergies Allergy/AdvReac Type Severity Reaction Status Date / Time No Known Allergies Allergy Verified 05/06/19 12:30 Home Medications: Ambulatory Orders Amox-Tr/K Cl [Augmentin 875-125mg Tablet -] 1 tab PO BID #14 tablet 05/02/19 Amox-Tr/K Cl [Augmentin 875-125mg Tablet -] 1 tab PO BID@0800,1730 7 Days tablet 05/02/19 COPD: No - Surgical History Cholecystectomy: Yes - Suicide/Smoking/Psychosocial Hx Smoking History: Never smoked Hx Alcohol Use: No Drug/Substance Use Hx: No Substance Use Type: None Patient Lives Alone: No Lives with/in: spouse/SO Review of Systems - Review of Systems Able to Perform ROS?: Yes Constitutional: No: Symptoms Reported Respiratory: No: Symptoms reported Cardiac (ROS): No: Symptoms Reported ABD/GI: No: Symptoms Reported : No: Symptoms Reported Musculoskeletal: No: Back Pain Integumentary: No: Symptoms Reported Neurological: No: Weakness Endocrine: No: Symptoms Reported Hematologic/Lymphatic: No: Symptoms Reported *Physical Exam - Vital Signs Last Vital Signs Temp Pulse Resp BP Pulse Ox 98.0 F 106 H 16 144/82 97 05/06/19 12:25 05/06/19 12:25 05/06/19 12:25 05/06/19 12:25 05/06/19 12:25 - Physical Exam General Appearance: Yes: Nourished, Appropriately Dressed. No: Apparent Distress HEENT: negative: Pale Conjunctivae Neck: positive: Supple Respiratory/Chest: positive: Lungs Clear, Normal Breath Sounds. negative: Respiratory Distress, Accessory Muscle Use Cardiovascular: positive: Regular Rhythm, Tachycardia. negative: Murmur Gastrointestinal/Abdominal: positive: Normal Bowel Sounds, Soft. negative: Distended, Tenderness Integumentary: positive: Normal Color, Warm, Moist, Other (2 x 2 gauze secured with biocclusive to 4 different areas intact and dry. Removed all 4 and noted dry intact Steri-Strips to right upper quadrant and periumbilical region. Noted small vertical linear vesicle to the left lateral aspect of Steri-Strips to periumbilical region) Neurologic: positive: Motor Strength 5/5 (ambulatory) Medical Decision Making - Medical Decision Making 05/06/19 13:02 Chief complaint: Here for wound check status post cholecystectomy [address] Schrader. Patient has appointment next week but concerned with removing the gauze as instructed today Exam: Surgical site 4 intact with small vertical vesicle to the periumbilical region likely due to adhesive. Otherwise no signs symptoms of infection minimal tenderness to surgical sites Plan: Band-Aid placed to blister noted to the periumbilical region otherwise other areas left open to air and patient given instructions on postoperative care *DC/Admit/Observation/Transfer Diagnosis at time of Disposition: Encounter for postoperative wound check - Discharge Dispostion Disposition: HOME Condition at time of disposition: Good - Referrals - Patient Instructions Printed Discharge Instructions: How to Care for a Surgical Wound-Skin Adhesive Additional Instructions: At this time your wounds are clean and dry showing no signs of infection. I placed a Band-Aid over the blister to your belly button region which you may change on a daily basis until it opens and then leaving area open to dry. - Post Discharge Activity
== END 2019-05-06 13:23 | disposition home or self-care (01) ==
LOC: JER 12:23
DX: Z48.01 Encounter for change or removal of surgical wound dressing (principal)
CPT/HCPCS: 99281-25